=== PATIENT | female | born 1940 | race Caucasian/White ===

== ENCOUNTER 2018-01-28 08:27 | Inpatient (IN) | payer MEDICARE ==
[~2018-01-28] VITALS: Ht 165.1 cm; Wt 69.6 kg
[~2018-01-28 08:27] MED LIST: ALPHAGAN 0.2%5 ML LEFT EYE; CELEXA10 MG PO; COSOPT EYE DROPS5 ML LEFT EYE; FAMOTIDINE10 MG PO; GLIPIZIDE10 MG PO; HYDROCODON-ACE1 EAC7 PO; IMODIUM2 MG PO; LASIX20 MG PO; LEVOXYL25 MCG PO; MEGACE40 MG PO; NEPHRO-VITE RX1 TAB PO; NEURONTIN 300300 MG PO; NORVASC10 MG PO; NORVASC5 MG PO; PEPCID AC20 MG PO; PRILOSEC20 MG PO; RENVELA800 MG PO; SENNA8.6 MG PO; SYNTHROID50 MCG PO; TENORMIN25 MG PO; TENORMIN50 MG PO; ULTRAM50 MG PO
[2018-01-28] MEDS ORDERED: ZOFRAN ODT4 MG/UDTAB PO (08:34)
[2018-01-28] MEDS ORDERED: NITROQUICK0.4 MG SL (08:35)
[2018-01-28] MEDS ORDERED: OMEPRAZOLE20 M1 PO (08:35)
[2018-01-28] MEDS ORDERED: GLIPIZIDE10 MG PO (08:36)
[2018-01-28] MEDS ORDERED: MEGACE40 MG PO (08:37)
[2018-01-28 08:47] VITALS: BP 208/79
[2018-01-28 09:02] LABS: BASOPHILS 0.2 % (0-2); EOSINOPHILS 0.6 % (0-7); HEMATOCRIT 35.3 % (36.0-48.0); HEMOGLOBIN 11.8 g/dL (12-16); IMMATURE GRANULOCYTES 0.2 % (0-5); LYMPHOCYTES 11.9 % (15-50); MCH 30.8 pg (26.0-34.0); MCHC 33.4 g/dL (31.0-37.0); MCV 92.2 fL (80.0-100.0); MEAN PLATELET VOLUME 9.8 fL (7.4-10.4); MONOCYTES 6.3 % (2-11); NEUTROPHILS 80.8 % (40-80); RBC 3.83 10x6/uL (4.00-5.40); RDW 14.5 % (11.5-14.5); WBC 17.1 10x3/uL (4.8-10.8)
[2018-01-28 09:03] LABS: PLATELET COUNT 287 10x3/uL (130-400)
[2018-01-28 09:09] LABS: APTT 28.1 SECONDS (22.8-39.4); INR 1.1 (0.85-1.17); PROTIME 13.8 SECONDS (11.6-15.0)
[2018-01-28 09:11] LABS: D-DIMER-QUANTITATIVE 1.02 ug/mLFEU (0.20-0.54)
[2018-01-28 09:39] LABS: ALBUMIN 3.3 g/dL (3.4-5.0); BILIRUBIN - TOTAL 0.54 mg/dL (0.2-1.3); CARBON DIOXIDE 23.6 mmol/L (21.0-32.0); CREATININE - SERUM 6.3 mg/dL (0.6-1.3); PROTEIN - SERUM 8.6 g/dL (6.4-8.2)
[2018-01-28 09:46] LABS: ANION GAP 18.6 mmol/L (8-16)
[2018-01-28 09:48] LABS: POTASSIUM - SERUM 6.2 mmol/L (3.5-5.1); TROPONIN-I 0.256 ng/mL (0.000-0.060)
[2018-01-28 10:31] VITALS: BP 225/83
[2018-01-28 12:35] VITALS: BP 189/62
[2018-01-28 21:03] VITALS: BP 143/53
[2018-01-29] VITALS (7 sets, daily range): BP systolic 135–182; BP diastolic 51–81; Ht 165.1 cm; Wt 69.6 kg
[2018-01-29 06:03] LABS: BASOPHILS 0.3 % (0-2); HEMATOCRIT 32.6 % (36.0-48.0); HEMOGLOBIN 10.8 g/dL (12-16); IMMATURE GRANULOCYTES 0.3 % (0-5); LYMPHOCYTES 17.1 % (15-50); MCH 30.7 pg (26.0-34.0); MCHC 33.1 g/dL (31.0-37.0); MCV 92.6 fL (80.0-100.0); MEAN PLATELET VOLUME 10.4 fL (7.4-10.4); MONOCYTES 10.2 % (2-11); NEUTROPHILS 69.1 % (40-80); PLATELET COUNT 249 10x3/uL (130-400); RBC 3.52 10x6/uL (4.00-5.40); RDW 14.8 % (11.5-14.5)
[2018-01-29 06:05] LABS: CARBON DIOXIDE 24.4 mmol/L (21.0-32.0); POTASSIUM - SERUM 5.4 mmol/L (3.5-5.1); THYROID STIMULATING HORMONE 1.06 uIU/mL (0.36-3.74)
[2018-01-29 06:07] LABS: WBC 11.7 10x3/uL (4.8-10.8)
[2018-01-29 06:13] LABS: CREATININE - SERUM 4.7 mg/dL (0.6-1.3)
[2018-01-30 01:28] VITALS: BP 150/57
[2018-01-30 04:00] VITALS: BP 153/67
[2018-01-30 05:12] LABS: BASOPHILS 0.4 % (0-2); EOSINOPHILS 5.3 % (0-7); HEMATOCRIT 31.6 % (36.0-48.0); HEMOGLOBIN 10.1 g/dL (12-16); IMMATURE GRANULOCYTES 0.3 % (0-5); LYMPHOCYTES 27.8 % (15-50); MCH 30.1 pg (26.0-34.0); MEAN PLATELET VOLUME 9.8 fL (7.4-10.4); NEUTROPHILS 56.2 % (40-80); RBC 3.36 10x6/uL (4.00-5.40); RDW 14.5 % (11.5-14.5); WBC 10.9 10x3/uL (4.8-10.8)
[2018-01-30 05:16] LABS: PLATELET COUNT 190 10x3/uL (130-400)
[2018-01-30 05:37] LABS: ANION GAP 20.9 mmol/L (8-16); CALCIUM 8.7 mg/dL (8.5-10.1); CARBON DIOXIDE 25.4 mmol/L (21.0-32.0); POTASSIUM - SERUM 5.3 mmol/L (3.5-5.1)
[2018-01-30 05:49] LABS: CREATININE - SERUM 6.3 mg/dL (0.6-1.3); PHOSPHOROUS 8.1 mg/dL (2.5-4.9)
[2018-01-30 09:05] VITALS: BP 161/57
[2018-01-30] MEDS ORDERED: AUGMENTIN 500-11 TA1 PO (11:39)
[2018-01-30] MEDS ORDERED: HYDRALAZINE HCL25 MG PO (11:40)
== END 2018-01-30 15:07 | disposition home or self-care (01) | DRG 193 ==
LOC: D.ER 08:27 → D.SDCHOLD 16:42 → D.M2 16:42
PROVIDERS: Family Medicine; Internal Medicine Nephrology
DX: J18.9 Pneumonia, unspecified organism (principal); N18.6 End stage renal disease; I12.0 Hypertensive chronic kidney disease with stage 5 chronic kidney disease or end stage renal disease; E11.22 Type 2 diabetes mellitus with diabetic chronic kidney disease; D63.1 Anemia in chronic kidney disease; E87.5 Hyperkalemia; E83.39 Other disorders of phosphorus metabolism; I25.10 Atherosclerotic heart disease of native coronary artery without angina pectoris; K21.9 Gastro-esophageal reflux disease without esophagitis; E03.9 Hypothyroidism, unspecified; I25.2 Old myocardial infarction; Z86.73 Personal history of transient ischemic attack (TIA), and cerebral infarction without residual deficits

== ENCOUNTER 2018-03-20 16:18 | Observation (INO) | payer MEDICARE ==
[~2018-03-20] VITALS: Ht 160 cm; Wt 70.5 kg
--- NOTE | ~2018-03-20 | DS ---
PATIENT:JESSY JOHNSON :40 MEDICAL RECORD: [id number] DISCHARGE SUMMARY ADMISSION DATE: 03/20/18 DISCHARGE DATE: 03/21/18 DIAGNOSES: 1. Supraventricular tachycardia. 2. End-stage renal failure, on dialysis. 3. Hypertension. HISTORY OF PRESENT ILLNESS: Ms. Johnson presented to the clinic with supraventricular tachycardia, heart rate in the 170s. She was given 0.5 of oral digoxin. She broke and has been in sinus rhythm since. She is as well on atenolol. REVIEW OF SYSTEMS: The patient reports easy bruising but reports no swollen glands. The patient reports no fever, no night sweats, no significant weight gain, no significant weight loss. No significant exercise tolerance. The patient reports no dry eyes, no irritation, no vision change. Patient reports no difficulty hearing and no ear pain. Patient reports no frequent nose bleeds or nose and sinus problems. Patient reports on arm pain on exertion. No shortness of breath while lying down. No history of heart murmur. Patient reports no cough, no wheezing or coughing up blood. Patient reports no abdominal pain, no vomiting. Normal appetite. No diarrhea and not vomiting blood. No nausea and no constipation. Patient reports no incontinence. No difficulty urinating. No hematuria. No increased frequency. Patient reports no muscle aches. No weakness, no arthralgias, no back pain. No swelling of the extremities. Patient reports no abnormal mole, no jaundice, no rashes. Reports no loss of consciousness. No weakness and no numbness. No seizures, dizziness, or headaches. The patient reports no depression, no sleep disturbance, feeling safe in a relationship and no alcohol abuse. Patient reports on fatigue. Reports no runny nose or sinus pressure. No itching, no hives, and no frequent sneezing. OVERALL IMPRESSION: Supraventricular tachycardia. At this time, we will continue the digoxin at 0.125 mg every other day. We will follow up in 3 weeks. TRANSINT:[id number] Voice Confirmation ID: [id number] DOCUMENT ID: [id number] ARAMIS OSBORNE MD at 1713 CC: [id number] DICTATION DATE: 03/21/18827 STRAW HAT BRUSHER: 03/21/1836 DIS IN 03/21/18 [id number] [place] [address]
--- NOTE | ~2018-03-20 | MORECARE ---
CASE MANAGEMENT DISCHARGE SUMMARY PATIENT: JESSY JOHNSON UNIT: [id number] ADM DATE: 03/20/18 AGE: 77 : 40 SEX: F ROOM/BED: D.[facility] AUTHOR: CASE, AUTOMATIC DRILLER AND REAMER PHYSICIAN: REFERRING PHYSICIAN: ARAMIS OSBORNE MD DATE OF SERVICE: 03/20/18 Discharge Plan Patient Name: JESSY JOHNSON [facility] 1940 Planned Disposition: Home Anticipated Discharge Date: 03/21/18 Discharge Date: Expected LOS: 1 Initial Reviewer: [email or web address] Initial Review Date: 03/21/2018 Generated: 03/21/18 10:31 am Patient Name: JESSY JOHNSON Page [phone] All edits/amendments must be made on the electronic document DICTATION DATE: 03/21/18930 CATERING ADMINISTRATIVE ASSISTANT: 03/21/18930 RPT#: [id number] DC DATE: STATUS: ADM IN [facility] [address] [place] [address] END OF REPORT
[~2018-03-20 16:18] MED LIST changes: +AUGMENTIN 500-11 TA1 PO; +HYDRALAZINE HCL25 MG PO; +NITROQUICK0.4 MG SL; +OMEPRAZOLE20 M1 PO; +ZOFRAN ODT4 MG/UDTAB PO
[2018-03-20 16:58] VITALS: BP 142/64; Ht 160 cm; Wt 70.5 kg
[2018-03-20 19:07] LABS: ANION GAP 11.9 mmol/L (8-16); CARBON DIOXIDE 27.7 mmol/L (21.0-32.0); CREATININE - SERUM 3.2 mg/dL (0.6-1.3); POTASSIUM - SERUM 3.6 mmol/L (3.5-5.1); T4 THYROXIN - FREE 1.53 ng/dL (0.76-1.46); T4 THYROXINE 10.6 ug/dL (4.7-13.3)
[2018-03-20 19:31] LABS: THYROID STIMULATING HORMONE 0.49 uIU/mL (0.36-3.74)
[2018-03-20 20:06] VITALS: BP 178/61
[2018-03-21] VITALS: BP 177/65
[2018-03-21 04:00] VITALS: BP 161/60
[2018-03-21 07:46] VITALS: BP 175/60
[2018-03-21] MEDS ORDERED: LANOXIN125 MCG PO (08:42)
== END 2018-03-21 09:40 | disposition home or self-care (01) ==
LOC: D.M2 16:18 → OBSVTIME 16:19 → D.M2 03-21 09:40 → EDBD 03-21 09:40
PROVIDERS: Internal Medicine Interventional Cardiology
DX: I47.1 Supraventricular tachycardia (principal); I12.0 Hypertensive chronic kidney disease with stage 5 chronic kidney disease or end stage renal disease; N18.6 End stage renal disease; Z99.2 Dependence on renal dialysis

== ENCOUNTER 2018-04-08 09:51 | Inpatient (IN) | payer MEDICARE ==
[~2018-04-08] VITALS: Ht 160 cm
--- NOTE | ~2018-04-08 | EC ---
PATIENT:JESSY JOHSNON DATE OF SERVICE: 04/08/18 SEX: F MEDICAL RECORD: [id number] DATE OF : 40 LOCATION:D. D.211 AGE OF PATIENT: 77 ADMISSION DATE: 04/08/18 REFERRING PHYSICIAN: INTERPRETING PHYSICIAN: ARAMIS OSBORNE MD ECHOCARDIOGRAM REPORT ECHO CHARGES 4 ECHO COMPLETE Date: 04/09 CLINICAL DIAGNOSIS: UNCONTROLLED HTN, HX OF RENAL PATIENT ECHOCARDIOGRAPHIC MEASUREMENTS (adult normal given) AC root (d.<3.7cm) 3.9 cm LV Septum d (<1.2 cm> 1.3 cm Valve Excursion 1.4 cm LV Septum (systole) 1.6 cm Left Atria (s.<4.0cm> 4.0 cm LVPW d(<1.2cm) 1.8 cm RV (d.<2.3cm) 3.8 cm LVPW (sytole) 2.0 cm LV diastole(<5.6CM) 5.4 cm MV E-F(>70mm/sec) cm LV systole 4.1 cm LVOT Diameter 1.5 cm MV exc.(>10mm) 1.2 cm Est.ejection fraction (50-75%) % DOPPLER: LVIT cm/sec A 195 cm/sec E 175 cm/sec LA cm/sec RVSP 45 mmHg LVOT 168 cm/sec AOP1/2T m/s Asc. Ao 269 cm/sec RVOT 106 cm/sec RA cm/sec PA 165 cm/sec AV Gradient Peak 28.95mmHg AV Mean 14.71mmHg AV Area 1.4 cm MV Gradient Peak 19.24mmHg MV Mean 8.50 mmHg MV Area cm COMMENTS: Mobile Sales Assistant: Wu MENDEZ Bottle Packing Machine Cleaner: 3 Dr. Cherry TAPE# PACS Pericardial Effusion N DATE OF SERVICE: 04/09/2018 ECHOCARDIOGRAM FINDINGS: 1. Left ventricular chamber size is within normal limits. Left ventricular systolic function is normal. Overall ejection fraction estimated at 55%. 2. Left atrium is upper limits of normal at 4.0 cm. Right atrium and right ventricle chamber sizes are mildly dilated. 3. Valvular structures: Aortic valve demonstrates mild calcific aortic ECHOCARDIOGRAM REPORT [id number] JESSY JOHNSON stenosis. Valve area calculates to 1.4 cm-squared. There is a gradient of 29 mm across the valve. The remaining valvular structures have normal structure and motion. 4. Doppler interrogation else montanez reveals mild mitral regurgitation and mild tricuspid regurgitation. Pulmonary systolic pressure is estimated at 45 mmHg. 5. No evidence of pericardial effusion or left ventricular thrombus. TRANSINT:[id number] Voice Confirmation ID: [id number] DOCUMENT ID: [id number] ARAMIS OSBORNE MD at 1642 CC: [id number] DICTATION DATE: 04/09/18 164 TELEPHONE ORDER DISPATCHER: 04/09/18 1848 ADM IN [facility] [address] [id number]
[~2018-04-08 09:51] MED LIST changes: +LANOXIN125 MCG PO
[2018-04-08 12:22] LABS: BASOPHILS 0 % (0-2); EOSINOPHILS 0 % (0-7); HEMATOCRIT 35.1 % (36.0-48.0); HEMOGLOBIN 11.7 g/dL (12-16); IMMATURE GRANULOCYTES 0.3 % (0-5); LYMPHOCYTES 5.1 % (15-50); MCHC 33.3 g/dL (31.0-37.0); MCV 93.1 fL (80.0-100.0); MEAN PLATELET VOLUME 10.7 fL (7.4-10.4); MONOCYTES 3.7 % (2-11); NEUTROPHILS 90.9 % (40-80); RBC 3.77 10x6/uL (4.00-5.40); RDW 14.6 % (11.5-14.5); WBC 16.6 10x3/uL (4.8-10.8)
[2018-04-08 12:38] LABS: PLATELET COUNT 265 10x3/uL (130-400)
[2018-04-08 13:06] LABS: ALBUMIN 3.4 g/dL (3.4-5.0); ALKALINE PHOSPHATASE 77 U/L (46-116); ALT (SGPT) 28 U/L (10-68); BILIRUBIN - TOTAL 0.55 mg/dL (0.2-1.3); CALCIUM 8.9 mg/dL (8.5-10.1); CARBON DIOXIDE 19.3 mmol/L (21.0-32.0); CHLORIDE - SERUM 96 mmol/L (98-107); CKMB 2.5 U/L (0.0-3.6); CREATINE KINASE 42 UL (21-215); CREATININE - SERUM 6.9 mg/dL (0.6-1.3); MAGNESIUM - SERUM 2.2 mg/dL (1.8-2.4); PROTEIN - SERUM 7.6 g/dL (6.4-8.2); SODIUM 132 mmol/L (136-145); UREA NITROGEN 70 mg/dL (7-18); eGFR NON AFRICAN AMERICAN 6 mL/min (90-120)
[2018-04-08 13:12] LABS: CALC OSMOLALITY 297 mosm/kg (275-300); GLUCOSE 310 mg/dL (74-106)
[2018-04-08 13:13] LABS: POTASSIUM - SERUM 6.5 mmol/L (3.5-5.1); TROPONIN-I 0.075 ng/mL (0.000-0.060)
[2018-04-08 13:30] VITALS: BP 213/86
[2018-04-08 13:42] LABS: PRO BNP 73036 pg/mL (0-450)
[2018-04-08 14:30] VITALS: BP 228/75
[2018-04-08 15:00] VITALS: BP 174/98
[2018-04-08] MEDS ORDERED: HYDRALAZINE HCL50 MG PO (18:17)
[2018-04-08] MEDS ORDERED: CATAPRES0.1 MG PO (18:18)
[2018-04-08 20:00] VITALS: BP 144/57
[2018-04-08 23:53] VITALS: BP 143/79
[2018-04-09 04:17] VITALS: BP 181/64
[2018-04-09 07:08] LABS: BASOPHILS 0.1 % (0-2); HEMATOCRIT 33.7 % (36.0-48.0); HEMOGLOBIN 11.1 g/dL (12-16); IMMATURE GRANULOCYTES 0.5 % (0-5); LYMPHOCYTES 12.5 % (15-50); MCH 30.3 pg (26.0-34.0); MCHC 32.9 g/dL (31.0-37.0); MCV 92.1 fL (80.0-100.0); MEAN PLATELET VOLUME 10.3 fL (7.4-10.4); MONOCYTES 7.1 % (2-11); NEUTROPHILS 78.8 % (40-80); PLATELET COUNT 233 10x3/uL (130-400); RBC 3.66 10x6/uL (4.00-5.40); RDW 14.6 % (11.5-14.5); WBC 14.3 10x3/uL (4.8-10.8)
[2018-04-09 07:19] LABS: CALCIUM 8.6 mg/dL (8.5-10.1); CREATININE - SERUM 5.8 mg/dL (0.6-1.3)
[2018-04-09 07:22] LABS: ANION GAP 14.5 mmol/L (8-16); CARBON DIOXIDE 26.5 mmol/L (21.0-32.0)
[2018-04-09 07:47] VITALS: BP 143/58
[2018-04-09 10:03] VITALS: Ht 160 cm
[2018-04-09 11:00] VITALS: BP 140/60
[2018-04-09 20:00] VITALS: BP 143/50
[2018-04-10 04:00] VITALS: BP 174/65
[2018-04-10 07:41] VITALS: BP 195/60
[2018-04-10 20:19] VITALS: BP 88/58
[2018-04-11] VITALS: BP 214/71
[2018-04-11 04:00] VITALS: BP 185/60
[2018-04-11 08:06] VITALS: BP 206/64
[2018-04-11 11:40] VITALS: BP 143/40
[2018-04-11 15:21] VITALS: BP 121/38
[2018-04-11 20:00] VITALS: BP 144/82
[2018-04-12] VITALS: BP 121/34
[2018-04-12 04:00] VITALS: BP 123/43
[2018-04-12 08:11] VITALS: BP 128/47
[2018-04-12 12:07] LABS: BASOPHILS 0.2 % (0-2); EOSINOPHILS 1.9 % (0-7); HEMATOCRIT 33.2 % (36.0-48.0); HEMOGLOBIN 10.9 g/dL (12-16); IMMATURE GRANULOCYTES 0.4 % (0-5); LYMPHOCYTES 10.5 % (15-50); MCH 29.9 pg (26.0-34.0); MCHC 32.8 g/dL (31.0-37.0); MCV 91.2 fL (80.0-100.0); MEAN PLATELET VOLUME 11.8 fL (7.4-10.4); MONOCYTES 7.4 % (2-11); NEUTROPHILS 79.6 % (40-80); PLATELET COUNT 251 10x3/uL (130-400); RBC 3.64 10x6/uL (4.00-5.40); WBC 16.3 10x3/uL (4.8-10.8)
[2018-04-12 12:49] LABS: ALBUMIN 2.8 g/dL (3.4-5.0); ANION GAP 16.5 mmol/L (8-16); BILIRUBIN - TOTAL 0.34 mg/dL (0.2-1.3); CARBON DIOXIDE 27.7 mmol/L (21.0-32.0); CREATININE - SERUM 7.2 mg/dL (0.6-1.3); POTASSIUM - SERUM 4.2 mmol/L (3.5-5.1); PROTEIN - SERUM 7.2 g/dL (6.4-8.2); T4 THYROXINE 8.7 ug/dL (4.7-13.3); THYROID STIMULATING HORMONE 0.47 uIU/mL (0.36-3.74)
[2018-04-12 15:29] VITALS: BP 123/44
[2018-04-12 20:00] VITALS: BP 123/33
[2018-04-13] VITALS: BP 126/38
[2018-04-13 04:00] VITALS: BP 151/63
[2018-04-13 08:58] VITALS: BP 153/46
[2018-04-13 14:43] VITALS: BP 151/90
[2018-04-13 14:45] VITALS: BP 130/33
[2018-04-13 20:38] VITALS: BP 170/50
[2018-04-14 00:30] VITALS: BP 158/50
[2018-04-14 04:27] LABS: BASOPHILS 0.2 % (0-2); EOSINOPHILS 3.6 % (0-7); HEMATOCRIT 32.2 % (36.0-48.0); HEMOGLOBIN 10.3 g/dL (12-16); IMMATURE GRANULOCYTES 0.3 % (0-5); LYMPHOCYTES 19.2 % (15-50); MCH 30.3 pg (26.0-34.0); MEAN PLATELET VOLUME 11.2 fL (7.4-10.4); MONOCYTES 9.3 % (2-11); NEUTROPHILS 67.4 % (40-80); PLATELET COUNT 203 10x3/uL (130-400); RDW 14.2 % (11.5-14.5)
[2018-04-14 04:30] VITALS: BP 177/55
[2018-04-14 04:30] LABS: MCV 94.7 fL (80.0-100.0); WBC 11.3 10x3/uL (4.8-10.8)
[2018-04-14 04:36] LABS: CALCIUM 8.9 mg/dL (8.5-10.1); CARBON DIOXIDE 28.1 mmol/L (21.0-32.0); POTASSIUM - SERUM 4.1 mmol/L (3.5-5.1)
[2018-04-14 08:47] VITALS: BP 159/52
[2018-04-14 12:53] VITALS: BP 134/47
[2018-04-14 16:13] VITALS: BP 150/50
[2018-04-14 20:20] VITALS: BP 165/59
[2018-04-15 00:30] VITALS: BP 128/43
[2018-04-15 04:30] VITALS: BP 187/59
[2018-04-15 05:21] LABS: BASOPHILS 0.2 % (0-2); HEMATOCRIT 31.1 % (36.0-48.0); HEMOGLOBIN 10.1 g/dL (12-16); IMMATURE GRANULOCYTES 0.3 % (0-5); MCH 29.8 pg (26.0-34.0); MCHC 32.5 g/dL (31.0-37.0); MEAN PLATELET VOLUME 11.3 fL (7.4-10.4); MONOCYTES 9.3 % (2-11); NEUTROPHILS 66.2 % (40-80); PLATELET COUNT 233 10x3/uL (130-400); RBC 3.39 10x6/uL (4.00-5.40); WBC 12.4 10x3/uL (4.8-10.8)
[2018-04-15 05:26] LABS: MCV 91.7 fL (80.0-100.0)
[2018-04-15 05:41] LABS: ALBUMIN 2.7 g/dL (3.4-5.0); ANION GAP 14.8 mmol/L (8-16); BILIRUBIN - TOTAL 0.41 mg/dL (0.2-1.3); CARBON DIOXIDE 27.6 mmol/L (21.0-32.0); CREATININE - SERUM 7.1 mg/dL (0.6-1.3); POTASSIUM - SERUM 4.4 mmol/L (3.5-5.1); PROTEIN - SERUM 6.8 g/dL (6.4-8.2)
[2018-04-15 07:47] VITALS: BP 188/56
[2018-04-15] MEDS ORDERED: LISINOPRIL10 MG PO (11:11)
[2018-04-15] MEDS ORDERED: LASIX40 MG PO (11:12)
[2018-04-15] MEDS ORDERED: CATAPRES0.2 MG PO (11:12)
[2018-04-15 11:16] LABS: RENIN ACTIVITY - PLASMA 0.752 ng/mL/hr (0.167-5.380)
[2018-04-15 11:18] VITALS: BP 136/43
[2018-04-17 08:21] LABS: ALDOSTERONE <1.0 ng/dL (0.0-30.0)
== END 2018-04-15 19:40 | disposition home or self-care (01) | DRG 291 ==
LOC: D.ER 09:51 → EDBD 13:09 → D.EDHOLD 13:09 → D.M2 13:09
PROVIDERS: Emergency Medicine; Internal Medicine
PROC: 5A1D70Z Performance of Urinary Filtration, Intermittent, Less than 6 Hours Per Day (ICD-10-PCS; principal; 2018-04-08)
DX: I13.2 Hypertensive heart and chronic kidney disease with heart failure and with stage 5 chronic kidney disease, or end stage renal disease (principal); J18.9 Pneumonia, unspecified organism; I50.33 Acute on chronic diastolic (congestive) heart failure; N18.6 End stage renal disease; J81.1 Chronic pulmonary edema; E87.5 Hyperkalemia; E11.22 Type 2 diabetes mellitus with diabetic chronic kidney disease; Z99.2 Dependence on renal dialysis; E11.40 Type 2 diabetes mellitus with diabetic neuropathy, unspecified; Z86.73 Personal history of transient ischemic attack (TIA), and cerebral infarction without residual deficits

== ENCOUNTER → 2018-05-22 15:38 | Outpatient (CLI) | payer MEDICARE ==
[~2018-05-22 15:38] MED LIST changes: +CATAPRES0.1 MG PO; +CATAPRES0.2 MG PO; +HYDRALAZINE HCL50 MG PO; +LASIX40 MG PO; +LISINOPRIL10 MG PO
== END | disposition home or self-care (01) ==
LOC: D.RAD 15:38
DX: R05 Cough (principal)

== ENCOUNTER → 2018-08-27 09:25 | Outpatient (CLI) | payer MEDICARE | END | disposition home or self-care (01) | LOC: D.CT 09:25 | DX: R10.9 Unspecified abdominal pain (principal) ==

== ENCOUNTER → 2019-01-06 14:37 | Outpatient (CLI) | payer MEDICARE ==
[2018-11-19 13:15] VITALS: BMI 19.8
[~2019-01-06 14:37] MED LIST changes: +BACTRIM DS PO; +BASAGLAR K100 UNIT/1; +MELATONIN 3 MG1 TAB PO
== END | disposition home or self-care (01) ==
LOC: D.US 01-02 08:30
PROVIDERS: ATTEND Nurse Practitioner Family
DX: R20.9 Unspecified disturbances of skin sensation (principal)

== ENCOUNTER 2019-01-18 22:02 | Inpatient (IN) | payer MEDICARE ==
[~2019-01-18] VITALS: Ht 160 cm; Wt 70.5 kg
--- NOTE | ~2019-01-18 | HEMODYNAMI ---
PATIENT:JESSY JOHNSON MEDICAL RECORD: [id number] : 40 LOCATION:[facility] ADMISSION DATE: 01/19/19 Generatedon:01/20/201920:21 Patient name: JESSY JOHNSON Patient #: [id number] SSN: : 1940 Date of study: 01/20/2019 Page: Of Hemodynamic Procedure Report Patient Data Patient Demographics Procedure consent was obtained First Name: JESSY Gender: Female Last Name: ELIZABETH : 1940 Middle Initial: L Age: 78 year(s) Patient #: [id number] Race: Unknown Additional ID: [id number] Contact details Address: [address] [place] [address] ROAD [facility] [place] [facility] Zip code: [address] Past Medical History Allergies Allergen Reaction Date Comments Reported Other allergy 01/20/2019 Admission Admission Data Admission Date: 01/19/2019 Admission Time: 1:11 Room #: [facility] Procedure Procedure Types Cath Procedure Peripheral Cath Diagnostic Procedure Abd/Extremity Extremities AFRO Lower Ext Arterio Procedure Description Procedure Date Procedure Date: 01/20/2019 Procedure Start Time: 13:46 Procedure Staff Name Function Dg Velasquez MD Performing Physician James Avila RT Monitor KANG RUSSELL RT Scrub Dory Jason RN Nurse Pete Lowery CRNA Additional personnel Procedure Data Cath Procedure Fluoroscopy Diagnostic fluoroscopy Total fluoroscopy Time: time: 31.3 min 31.3 min Diagnostic fluoroscopy Total fluoroscopy dose: dose: 1259 mGy 1259 mGy Contrast Material Contrast Material Type Amount (ml) Isovue 300 270 Entry Location Entry Primary Successful Side Size Upsize Upsize Entry Closure Succes sful Closure Location (Fr) 1 (Fr) 2 (Fr) Remarks Device Remarks Femoral Left 5 Fr 7 Fr Exoseal artery Short Femoral Right 5 Fr 7 Fr Exoseal artery Short Femoral Right 6 Fr artery Short Diagnostic catheters Device Type Used For End Catheter Placement Merit UHF Pigtail VESSEL SIZING 5Fr 65CM catheter ([id number]) Procedure Medications Medication Administration Route Dosage Heparin Flush Bag added to field 3 bags (1000units/500ml NS) Lidocaine 1% added to field 20 Fentanyl I.V. 25 mcg Versed I.V. 0.5 mg Fentanyl I.V. 25 mcg Versed I.V. 0.5 mg Versed I.V. 1 mg Fentanyl I.V. 50 mcg Heparin Bolus I.V. 4000 units Versed I.V. 0.5 mg Fentanyl I.V. 25 mcg Fentanyl I.V. 25 mcg Versed I.V. 0.5 mg Versed I.V. 0.5 mg Fentanyl I.V. 25 mcg Heparin Bolus I.V. 2000 units Heparin Flush Bag added to field 1 bags (1000units/500ml NS) Heparin Bolus I.V. 2000 units Fentanyl I.V. 25 mcg Versed I.V. 0.5 mg Heparin Bolus I.V. 1000 units Hemodynamics Rest Heart Rate: 76 (bpm) Snapshots Pre Cath Intra NCS Post Cath Vital Signs Time Heart Resp SPO2 etCO2 NIBP (mmHg) Rhythm Pain Sedation Rate (ipm) (%) (mmHg) Status Level (bpm) 13:38:35 75 24 100 22.5 139/74(117) NSR 0 (11) 9(A) , No pain 13:42:51 76 25 100 23.2 136/71(114) NSR 0 (11) 9(A) , No pain 13:47:07 73 9 98 24 132/69(112) NSR 0 (11) 9(A) , No pain 13:51:23 69 17 95 21 133/66(113) NSR 0 (11) 9(A) , No pain 13:55:39 64 21 96 10 127/67(102) NSR 0 (11) 9(A) , No pain 13:59:55 66 20 98 9 116/57(99) NSR 0 (11) 9(A) , No pain 14:04:07 68 18 97 10 117/58(97) NSR 0 (11) 9(A) , No pain 14:08:19 71 19 98 10 127/58(91) NSR 0 (11) 9(A) , No pain 14:12:31 72 16 98 14.5 128/65(107) NSR 0 (11) 9(A) , No pain 14:16:49 73 20 100 12.7 57/44(51) NSR 0 (11) 9(A) , No pain 14:19:12 67 17 99 0 119/58(93) NSR 0 (11) 9(A) , No pain 14:23:24 70 17 86 0 105/57(76) NSR 0 (11) 8(A) , No pain 14:27:32 70 15 96 13.5 114/57(89) NSR 0 (11) 8(A) , No pain 14:31:44 71 17 25.5 130/60(115) NSR 0 (11) 8(A) , No pain 14:36:02 68 14 100 13.5 118/55(81) NSR 0 (11) 8(A) , No pain 14:40:16 68 17 99 9.7 108/50(82) NSR 0 (11) 8(A) , No pain 14:43:35 66 15 99 11.2 109/53(83) NSR 0 (11) 8(A) , No pain 14:48:34 69 15 96 0 Measuring NSR 0 (11) 8(A) , No pain 14:48:44 66 16 94 0 114/55(84) NSR 0 (11) 8(A) , No pain 14:52:54 68 15 92 12.7 104/58(95) NSR 0 (11) 8(A) , No pain 14:57:00 70 16 92 19.5 113/62(89) NSR 0 (11) 8(A) , No pain 15:01:10 69 16 98 12.7 116/58(94) NSR 0 (11) 8(A) , No pain 15:06:09 69 16 99 25.5 Measuring NSR 0 (11) 8(A) , No pain 15:06:10 69 17 100 20.2 134/62(101) NSR 0 (11) 8(A) , No pain 15:10:29 68 16 92 0 129/62(96) NSR 0 (11) 8(A) , No pain 15:14:45 70 15 94 16.5 126/60(96) NSR 0 (11) 8(A) , No pain 15:18:59 70 15 97 9.7 124/65(91) NSR 0 (11) 8(A) , No pain 15:23:11 68 16 98 9 134/65(93) NSR 0 (11) 8(A) , No pain 15:27:26 70 16 99 0 133/65(96) NSR 0 (11) 8(A) , No pain 15:31:43 69 18 97 0 128/62(105) NSR 0 (11) 8(A) , No pain 15:35:57 69 17 100 15 144/66(112) NSR 0 (11) 8(A) , No pain 15:40:19 68 18 95 0 130/60(102) NSR 0 (11) 8(A) , No pain 15:44:35 69 18 95 12.7 135/63(91) NSR 0 (11) 8(A) , No pain 15:48:51 68 16 96 0 127/67(101) NSR 0 (11) 8(A) , No pain 15:53:03 68 18 97 0 139/64(110) NSR 0 () 8(A) , No pain 15:57:21 67 16 97 0 141/66(105) NSR 0 (11) 8(A) , No pain 16:01:41 67 8 96 0 139/65(113) NSR 0 (11) 8(A) , No pain 16:06:40 0 Measuring NSR 0 (11) 8(A) , No pain 16:07:13 24.7 128/57(73) NSR 0 (11) 8(A) , No pain 16:11:59 0 150/80(119) NSR 0 (11) 8(A) , No pain 16:16:58 67 14 0 Measuring NSR 0 (11) 8(A) , No pain 16:18:22 68 12 0 Time NSR 0 (11) 8(A) Exceeded , No pain 16:20:07 77 14 86 0 103/61(74) NSR 0 (11) 8(A) , No pain 16:25:06 72 13 92 0 Measuring NSR 0 (11) 8(A) , No pain 16:26:08 72 18 94 0 Out of range NSR 0 (11) 8(A) , No pain 16:30:09 67 9 99 1.5 100/52(77) NSR 0 (11) 8(A) , No pain 16:34:19 65 8 100 0.7 91/49(72) NSR 0 (11) 8(A) , No pain 16:38:27 64 8 100 1.5 85/44(67) NSR 0 (11) 8(A) , No pain 16:42:31 63 11 100 2.2 82/46(68) NSR 0 (11) 8(A) , No pain 16:46:34 60 16 100 3 81/46(64) NSR 0 (11) 8(A) , No pain 16:50:36 61 13 100 9 94/49(75) NSR 0 (11) 8(A) , No pain 16:54:40 60 12 100 1.5 106/61(84) NSR 0 (11) 8(A) , No pain 16:58:48 62 16 100 5.2 110/57(86) NSR 0 (11) 8(A) , No pain 17:02:59 60 16 100 5.2 107/56(91) NSR 0 (11) 8(A) , No pain 17:07:07 59 17 100 5.2 106/60(90) NSR 0 (11) 8(A) , No pain 17:11:17 58 17 100 4.5 107/57(89) NSR 0 (11) 8(A) , No pain 17:15:27 57 25 100 5.2 111/55(88) NSR 0 (11) 8(A) , No pain 17:19:37 58 22 100 5.2 118/58(96) NSR 0 (11) 8(A) , No pain 17:23:49 58 24 100 5.2 116/59(97) NSR 0 (11) 8(A) , No pain 17:28:01 58 24 100 5.2 111/58(91) NSR 0 (11) 8(A) , No pain 17:32:13 57 24 100 5.2 112/56(91) NSR 0 (11) 8(A) , No pain 17:36:25 57 32 100 4.5 113/54(94) NSR 0 (11) 8(A) , No pain 17:40:39 57 20 100 4.5 108/51(89) NSR 0 (11) 8(A) , No pain 17:44:49 58 34 100 4.5 111/55(89) NSR 0 (11) 8(A) , No pain 17:48:58 57 20 100 4.5 106/59(90) NSR 0 (11) 8(A) , No pain 17:53:08 58 26 100 5.2 115/57(98) NSR 0 (11) 8(A) , No pain 17:57:14 60 27 100 4.5 117/60(96) NSR 0 (11) 8(A) , No pain 18:01:24 58 28 3.7 122/68(100) NSR 0 (11) 8(A) , No pain 18:05:28 58 23 3.7 118/105(114) NSR 0 (11) 8(A) , No pain 18:06:29 58 23 98 3.7 129/64(92) NSR 0 (11) 8(A) , No pain 18:11:28 62 25 98 5.2 Measuring NSR 0 (11) 8(A) , No pain 18:11:43 63 20 96 6.7 129/83(100) NSR 0 (11) 8(A) , No pain 18:15:53 62 15 98 2.2 148/83(129) NSR 0 (11) 8(A) , No pain 18:20:09 62 18 99 1.5 149/83(125) NSR 0 (11) 8(A) , No pain 18:24:22 63 18 9.7 158/90(134) NSR 0 (11) 8(A) , No pain 18:28:43 61 17 100 4.5 161/85(119) NSR 0 (11) 8(A) , No pain 18:33:03 61 17 100 6 161/90(131) NSR 0 (11) 8(A) , No pain 18:37:21 60 17 1.5 158/90(133) NSR 0 (11) 8(A) , No pain 18:41:43 62 17 1.5 164/81(135) NSR 0 (11) 8(A) , No pain 18:45:51 94 16.5 130/86(117) NSR 0 (11) 8(A) , No pain 18:49:50 65 9 98 16.5 109/81(94) NSR 0 (11) 8(A) , No pain 18:54:43 66 15 97 0.7 130/105(115) NSR 0 (11) 8(A) , No pain 18:58:59 71 9 88 0 126/67(85) NSR 0 (11) 8(A) , No pain 19:03:58 62 16 88 0 Measuring NSR 0 () 8(A) , No pain 19:05:20 62 15 90 0 Time NSR 0 (11) 8(A) Exceeded , No pain 19:06:20 62 20 84 0 No Cuff NSR 0 () 8(A) , No pain 19:09:40 64 25 0 Time NSR 0 (11) 8(A) Exceeded , No pain 19:14:01 63 27 0 Time NSR 0 () 8(A) Exceeded , No pain 19:17:38 63 8 82 0 Time NSR 0 (11) 8(A) Exceeded , No pain 19:22:10 59 18 91 0 Time NSR 0 (11) 8(A) Exceeded , No pain 19:26:10 61 13 98 0 No Cuff NSR 0 () 8(A) , No pain 19:30:10 69 23 0 No Cuff NSR 0 (11) 8(A) , No pain 19:34:09 59 20 0 No Cuff NSR 0 () 8(A) , No pain 19:38:13 54 23 0 Time NSR 0 (11) 8(A) Exceeded , No pain 19:43:12 53 28 0 Measuring NSR 0 (11) 8(A) , No pain 19:44:05 53 14 0 116/58(97) NSR 0 (11) 8(A) , No pain 19:48:05 55 22 0 No Cuff NSR 0 (11) 8(A) , No pain 19:52:04 0 No Cuff NSR 0 (11) 8(A) , No pain 19:56:04 0 No Cuff NSR 0 (11) 8(A) , No pain 20:00:04 0 No Cuff NSR 0 (11) 8(A) , No pain 20:04:03 0 No Cuff NSR 0 (11) 8(A) , No pain 20:08:03 0 No Cuff NSR 0 (11) 8(A) , No pain 20:12:03 0 No Cuff NSR 0 (11) 8(A) , No pain 20:16:02 0 No Cuff NSR 0 (11) 8(A) , No pain 20:20:02 0 No Cuff NSR 0 (11) 8(A) , No pain Medications Time Medication Route Dose Verified Delivered Reason Notes Effec tiveness by by 13:44:22 Heparin Flush added 3 Dg Conte used for Bag to bags Eva Velasquez MD procedure (1000units/500ml field MORALES NS) 13:44:43 Lidocaine 1% added 20ml Dg Conte used for to vial Eva Velasquez MD procedure field MORALES 13:50:39 Fentanyl I.V. 25 Dg Dory for mcg Eren Velasquez RN sedation 13:51:13 Versed I.V. 0.5 Dg Dory for mg RebeccaaEren RN sedation 13:55:06 Fentanyl I.V. 25 Dg Dory for mcg RebeccaaEren RN sedation 13:55:15 Versed I.V. 0.5 Dg Dory for mg BurdaEren RN sedation 14:19:43 Versed I.V. 1 mg Dg Dory for BurdaEren RN sedation 14:19:58 Fentanyl I.V. 50 Dg Dory for mcg RebeccaaEren RN sedation 14:30:08 Heparin Bolus I.V. 4000 Dg Dory Per units Eren Velasquez RN physician 14:35:37 Versed I.V. 0.5 Dg Dory for mg Burda, Eren RN sedation 14:35:50 Fentanyl I.V. 25 Dg Dory for mcg Burda, Eren RN sedation 14:40:18 Fentanyl I.V. 25 Dg Dory for mcg Burda, Eren RN sedation 14:43:24 Versed I.V. 0.5 Gd Dory for mg Burda, Eren RN sedation 15:07:09 Versed I.V. 0.5 Dg Dory for mg Burda, Eren RN sedation 15:07:19 Fentanyl I.V. 25 Dg Connors for mcg Eren Velasquez RN sedation 15:09:46 Heparin Bolus I.V. 2000 Dg Connors Per units Eren Velasquez RN physician 15:38:32 Heparin Flush added 1 Dg Conte used for Bag to bags Eva Velasquez MD procedure (1000units/500ml field NS) 15:39:05 Heparin Bolus I.V. 2000 Dg Connors used for units Eren Velasquez RN procedure 15:39:21 Fentanyl I.V. 25 Dg Connors for mcg Eren Velasquez RN sedation 15:39:33 Versed I.V. 0.5 Dg Connors for mg Eren Velasquez RN sedation 16:52:43 Heparin Bolus I.V. 1000 Dg Connors used for units Eren Velasquez RN procedure Procedure Log Time Note 13:14:31 James Avila RT (R) (CV) sent for patient. Start room use. 13:14:46 Time tracking: Regular hours (M-F 7:00 - 5:00) 13:14:51 Plan of Care:Hemodynamics will remain stable., Cardiac rhythm will remain stable., Comfort level will be maintained., Respiratory function will remain adequate., Patient/ family verbilizes understanding of procedure., Procedure tolerated without complication., Recovers from procedure without complications.. 13:14:59 Patient received from Med II to IR Alert and oriented. Tansferred to table in Supine position. 13:15:00 Correct patient and procedure confirmed by team. 13:15:02 Signed procedure consent form obtained from patient. 13:15:04 ECG and BP/O2 sat monitors applied to patient. 13:15:05 Full Disclosure recording started 13:15:08 - 13:15:12 H&P Date Dictated: 01/20/2019 H&P Addendum completed by physician on day of procedure. (MUST COMPLETE FOR ALL OUTPATIENTS). 13:15:13 Pre-procedure instructions explained to patient. 13:15:14 Pre-op teaching completed and patient verbalized understanding. 13:15:15 Family in waiting room. 13:15:17 Patient NPO since Midnight. 13:15:26 Patient allergic to Other allergy 13:15:33 Use device set IR Diagnostic 13:15:34 ACIST Syringe (93315) opened to sterile field. 13:15:35 ACIST Hand Control (92495) opened to sterile field. 13:15:35 ACIST Manifold (02885) opened to sterile field. 13:15:36 Bag Decanter (2002S) opened to sterile field. 13:15:36 Sterile Angiographic Pack opened to sterile field. 13:15:37 Tegaderm 4 x 4 (1626W) opened to sterile field. 13:15:49 Is the patient allergic to Iodine/contrast media? No. 13:15:51 Is patient on blood thinner?Yes 13:15:54 ACC The patient was administered the following blood thiners within the last 24 hours: ACCHeparin 13:15:57 Patient diabetic? Yes. 13:16:01 If diabetic: On Metformin? No 13:16:06 - 13:16:07 ----Pre-sedation anethsthesia assessment.---- 13:16:13 Previous problem with sedation/anesthesia? No ? 13:16:14 Snore? Yes 13:16:16 Sleep apnea? No 13:16:18 Deviated septum? No 13:16:20 Opens mouth fully? Yes 13:16:21 Sticks out tongue? Yes 13:16:23 Airway obstruction? No ? 13:16:26 Dentures? No ? 13:37:26 Baseline sample Acquired. 13:37:26 Vital chart was started 13:37:36 Pre procedure: right dorsailis pedis pulse None 13:37:40 Pre procedure: left dorsailis pedis pulse None 13:37:44 Pre procedure: right posterior tibial pulse None 13:37:48 Pre procedure: left posterior tibial pulse None 13:38:14 IV patent on arrival in right femerol vein with 0.9% NaCl at [facility]. 13:38:37 Sharps counted by scrub and verified by R.N. 13:38:38 Alarms reviewed by R. N. 13:39:01 Right groin area was prepped with chlora-prep and draped in sterile fashion 13:44:22 Heparin Flush Bag (1000units/500ml NS) 3 bags added to field was administered by Dg Velasquez MD; used for procedure; 13:44:43 Lidocaine 1% 20ml vial added to field was administered by Dg Velasquez MD; used for procedure; 13:45:55 Physician arrived 13:45:56 --------ALL STOP TIME OUT------ 13:45:56 Final Timeout: patient, procedure, and site verified with staff and physician. All members of the team are in agreement. 13:45:59 Bilateral groins site verified by team. 13:46:07 Fire Safety Assessment: A--An alcohol-based skin anteseptic being used preoperatively., C--Open oxygen or nitrous oxide is being used. 13:46:10 Sedation plan: IV Moderate Sedation Medication:Versed, Fentanyl 13:46:17 Procedure started. 13:46:24 Local anesthetic to left femerol artery with Lidocaine 1% by Dg Velasquez MD.INITIAL ACCESS ONLY 13:50:39 Fentanyl 25 mcg I.V. was administered by Dory Jason RN; for sedation; 13:51:13 Versed 0.5 mg I.V. was administered by Dory Jason RN; for sedation; 13:53:18 DOC .035 wire (F09009) opened to sterile field. 13:53:18 SHEATH 5FR [place] (QBU632) opened to sterile field. 13:53:19 Micropuncture VSI 4FR kit opened to sterile field. 13:53:19 TUBING Contrast Injection High Pressure (XPE718I) opened to sterile field. 13:53:19 Angiodynamics Omniflush 5Fr 65cm (16055165) opened to sterile field. 13:53:21 Access obtained with 4Fr micropunture. 13:53:32 A 5 Fr sheath was inserted into the Left Femoral artery 13:54:24 GLIDE WIRE ANGLE 180cm (GW4200) opened to sterile field. 13:54:25 GLIDE CATHETER 5FR ANGLED 65cm (CG507) opened to sterile field. 13:55:06 Fentanyl 25 mcg I.V. was administered by Dory Jason RN; for sedation; 13:55:15 Versed 0.5 mg I.V. was administered by Dory Jason RN; for sedation; 13:58:52 ROADRUNNER .035 260 glide wire (X91767) opened to sterile field. 14:01:38 PELLETIER 260 wire (C85523) opened to sterile field. 14:02:20 INFLATOR BasixTOUCH (TE8560) opened to sterile field. 14:02:20 INFLATOR BasixTOUCH (OS3691) opened to sterile field. 14:04:40 SHEATH 5FR [place] (PCY005) opened to sterile field. 14:04:41 [place] 7FR sheath opened to sterile field. 14:05:04 Local anesthetic to left femerol artery with Lidocaine 1% by Dg Velasquez MD.ADDITIONAL ACCESS 14:05:21 A 5 Fr sheath was inserted into the Right Femoral artery 14:19:43 Versed 1 mg I.V. was administered by Dory Jason RN; for sedation; 14:19:58 Fentanyl 50 mcg I.V. was administered by Dory Jason RN; for sedation; 14:22:05 see anesthesia note for tiva 14:26:36 PELLETIER 260 wire (X14054) opened to sterile field. 14:26:54 A Merit [facility] Pigtail VESSEL SIZING 5Fr 65CM catheter ([id number]) was advanced over the wire and used for . 14:29:43 [place] 7FR sheath opened to sterile field. 14:29:53 Sheath upsized to a 7 Fr Short. 14:30:08 Heparin Bolus 4000 units I.V. was administered by Dory Jason RN; Per physician; 14:30:26 Sheath upsized to a 7 Fr Short. 14:35:37 Versed 0.5 mg I.V. was administered by Dory Jason RN; for sedation; 14:35:50 Fentanyl 25 mcg I.V. was administered by Dory Jason RN; for sedation; 14:40:18 Fentanyl 25 mcg I.V. was administered by Dory Jason RN; for sedation; 14:40:31 Inflate balloon Inflation number: 3 A Evercross 5 x 4 x 135 Balloon ([id number]) was prepped and advanced across the Undefined1 , then inflated to 12 DEANDRE for 0:00 (min:sec) . 14:40:43 Inflate balloon Inflation number: 4 A Evercross 5 x 4 x 135 Balloon ([id number]) was prepped and advanced across the Undefined1 , then inflated to 12 DEANDRE for 0:08 (min:sec) . 14:41:11 Place stent Inflation Number: 2 A Visipro 9 x 37 x 135 Stent ([id number]) was prepped and advanced across the Undefined1 . The stent was deployed 14:42:43 Place stent Inflation Number: 1 A Visipro 9 x 37 x 135 Stent ([id number]) was prepped and advanced across the Undefined1 . The stent was deployed 14:43:24 Versed 0.5 mg I.V. was administered by Dory Jason RN; for sedation; 15:00:08 EVERFLEX 8 x 80 Stent ([id number]) was deployed across Undefined1 . 15:03:50 Inflate balloon Inflation number: 5 A Evercross 8 x 80 x 135 ([id number]) was prepped and advanced across the Undefined1 , then inflated to 10 DEANDRE for 0:04 (min:sec) . 15:07:09 Versed 0.5 mg I.V. was administered by Dory Jason RN; for sedation; 15:07:19 Fentanyl 25 mcg I.V. was administered by Dory Jason RN; for sedation; 15:09:46 Heparin Bolus 2000 units I.V. was administered by Dory Jason RN; Per physician; 15:14:57 EXOSEAL 7Fr (EX700) opened to sterile field. 15:15:12 Sheath removed intact; hemostasis achieved with Exoseal to the Left Femoral artery. 15:16:12 EXOSEAL 7Fr (EX700) opened to sterile field. 15:16:25 Sheath removed intact; hemostasis achieved with Exoseal to the Right Femoral artery. 15:17:18 Micropuncture VSI 4FR kit opened to sterile field. 15:25:38 Local anesthetic to right femoral artery with Lidocaine 1% by Dg Velasquez MD.ADDITIONAL ACCESS 15:25:49 A 6 Fr Short sheath was inserted into the Right Femoral artery 15:34:16 Cordis 6Fr BRITE TIP 11cm sheath opened to sterile field. 15:38:32 Heparin Flush Bag (1000units/500ml NS) 1 bags added to field was administered by Dg Velasquez MD; used for procedure; 15:39:05 Heparin Bolus 2000 units I.V. was administered by Dory Jason RN; used for procedure; 15:39:21 Fentanyl 25 mcg I.V. was administered by Dory Jason RN; for sedation; 15:39:33 Versed 0.5 mg I.V. was administered by Dory Jason RN; for sedation; 15:40:48 CXI Catheter 90cm (W73737) opened to sterile field. 15:48:55 CHOICE PT Extra Support J 300cm guide wire ([id number]) opened to steril e field. 15:49:06 Trailblazer 0.035 90cm catheter ([id number]-[id number]) opened to sterile field. 16:07:59 Angiojet PROXI 6Fr 90CM thrombectomy catheter opened to sterile field. 16:20:48 Pete Lowery CRNA present and monitoring patient for TIVA. 16:52:43 Heparin Bolus 1000 units I.V. was administered by Dory Jason RN; used for procedure; 17:02:43 Inflate balloon Inflation number: 6 A Evercross 4 x 100 x 135 Balloon ([id number]) was prepped and advanced across the Undefined1 , then inflated to 8 DEANDRE for 0:01 (min:sec) . 17:02:48 AMPLATZ Super Stiff 75cm wire ([id number]) opened to sterile field. 17:10:15 Cordis 5Fr BRITE TIP 11cm sheath opened to sterile field. 17:10:46 Navicross Support Straight .035 150cm catheter ([id number]) opened to sterile field. 17:24:12 Inflate balloon Inflation number: 7 A CHOCOLATE 4.0 x 120 x 135 balloon ([id number]) was prepped and advanced across the Undefined1 , then inflated to 9 DEANDRE for 3:19 (min:sec) . 17:36:42 5 x 120 protege stent placed lot#[id number] 17:39:30 SHEATH 6FR [place] (GZX473) opened to sterile field. 17:55:40 Procedure ended.(Physican Out) 17:56:49 DOC .035 wire (A06553) opened to sterile field. 18:10:42 Fluoroscopy time 31.30 minutes. 18:10:46 Flurop Dose total: 1259 18:10:46 Fluoroscopy dose: 1259 mGy 18:10:49 Sharps counted by scrub and verified by R.N. 18:10:53 Insertion/operative site no bleeding no hematoma. 18:17:01 Post-op/insertion site Left Femoral artery dressed using a 4 x 4 and Tegaderm. 18:17:10 Post left femerol artery:hematoma, soft 18:17:21 Post procedure: right dorsailis pedis pulse Doppler. 18:17:27 Post procedure: right posterior tibial pulse Doppler. 18:31:55 PT WAS REPREPPED RT.GROING WAS PREPPED WITH CHORLAPREP SOLUTION 18:40:12 Local anesthetic to right femoral artery with Lidocaine 1% by Dg Velasquez MD.ADDITIONAL ACCESS 18:40:34 EXOSEAL 6Fr (EX600) opened to sterile field. 19:05:44 Procedure ended.(Physican Out) 19:51:28 Post right femoral artery:hematoma, soft 19:51:30 Post procedure instruction explained to patient.Patient verbalizes understanding. 19:51:32 Procedure and supply charges have been captured, reviewed, submitted an d are correct. 19:52:39 see anesthesia note for post procedure anesthesia 20:00:29 Contrast amount:Isovue 300 270ml. 20:00:43 Report given to CVICU. 20:00:48 Patient transfered to CVICU with Bed. 20:21:00 Vital chart was stopped Intervention Summary Intervention Notes Time ActionType Lesion and Equipment Used Action# Pressure Duration Attributes 14:40:31 Inflate Undefined1 Evercross 5 x 4 x 3 12 00:00 balloon 135 Balloon ([id number]) 14:40:43 Inflate Undefined1 Evercross 5 x 4 x 4 12 00:08 balloon 135 Balloon ([id number]) 14:41:11 Place stent Undefined1 Visipro 9 x 37 x 2 0 00:00 135 Stent ([id number]) 14:42:43 Place stent Undefined1 Visipro 9 x 37 x 1 0 00:00 135 Stent ([id number]) 15:00:08 Deploy self Undefined1 EVERFLEX 8 x 80 1 expanding Stent stent ([id number]) 15:03:50 Inflate Undefined1 Evercross 9 x 80 5 10 00:04 balloon x 135 ([id number]) 17:02:43 Inflate Undefined1 Evercross 4 x 100 6 8 00:01 balloon x 135 Balloon ([id number]) 17:24:12 Inflate Undefined1 CHOCOLATE 4.0 x 7 9 03:19 balloon 80 x 135 balloon ([id number]) Device Usage Item Name Manufacture Quantity Catalog Number [facility] Part Cu rrent Minimal Lot# / Charge Number Stock Stock Serial# Code ACIST Syringe Acist Medical 1 06085 684278 522912 98 8211 20 (55561) Systems Inc ACIST Hand Acist Medical 1 81089 595593 770443 98 8639 5 Control (60571) Systems Inc ACIST Manifold Acist Medical 1 12796 856673 784091 98 8656 5 (68852) Systems Inc Bag Decanter Microtek 1 2001S 934880 27025 98 6813 5 (2001S) Medical Inc. Sterile Cardinal 1 [id number] 436803 99 8241 5 Angiographic [facility] Tegaderm 4 x 4 3M 1 1626W 807315 937982 99 2167 5 (1626W) DOC .035 wire [employer] 2 M48731 358348 99 9479 5 (M43572) SHEATH 5FR Terumo 2 FOQ896 273985 712247 99 5251 5 [place] (YHL086) Micropuncture VSI VSI VASCULAR 2 7266V 481669 99 9311 5 4FR kit SOLUTIONS TUBING Contrast [facility] 1 AVN293I 576624 681007 99 9439 5 Injection High Pressure (KJT989D) Angiodynamics Angiodynamics 1 [id number] 283085 715070 99 9939 5 Omniflush 5Fr 65cm (86943942) GLIDE WIRE ANGLE Terumo 1 AN1288 317212 700218 99 9615 5 180cm (NL2237) GLIDE CATHETER [employer]o 1 CG507 710121 99 9712 5 5FR ANGLED 65cm (CG507) ROADRUNNER .035 [employer] [facility] 1 H80705 151173 380746 99 9809 5 [id number] 260 glide wire (J24138) PELLETIER 260 wire [employer] [facility] 2 P29762 911556 97581 99 9578 5 (W67217) INFLATOR [facility] 2 NO5768 076750 075849 99 9769 5 BasixTOUCH (IR6623) [facility] 7FR [facility] 2 186343 025224 99 9955 5 6632005 sheath 1079668 [employer] UHF Pigtail [facility] 1 7602-20M65 853421 99 9931 5 VESSEL SIZING 5Fr 65CM catheter (885248O38) Visipro 9 x 37 x Medtronic 2 [id number] 568407 76136 99 9997 5 [id number] 135 Stent A169550 ([id number]) [place] 5 x 4 x [employer]onic 2 [id number] 413481 151605 99 9986 5 D161816 135 Balloon [id number] ([id number]) EVERFLEX 8 x 80 [employer]onic 1 [id number] 428803 246353 99 9996 5 P143466 Stent T750098 ([id number]) [employer] 9 x 80 [employer]tronic 1 [id number] 840049 [id number] 99 9998 5 x 135 ([id number]) EXOSEAL 7Fr Cardinal 2 EX700 504658 226503 99 9743 5 [id number] ([id number]) Health [id number] Cordis 6Fr BRITE Cardinal 1 [id number] 988438 99 9947 5 TIP 11cm sheath Health CXI Catheter 90cm Bionaturis 1 [id number] 187530 003389 99 9913 5 [id number] ([id number]) CHOICE PT Extra Center 1 [id number] 99 8991 5 [id number] Support J 300cm Scientific guide wire ([id number]) Trailblazer 0.035 Medtronic 1 [id number] 382635 2880973 99 9988 5 90cm catheter (ASC-035-090) Angiojet PROXI Center 1 [id number] 101746 573639 99 9984 5 6Fr 90CM Scientific thrombectomy catheter [place] 4 x 100 Medtronic 1 [id number] 978590 532973 99 9993 5 [id number] x 135 Balloon ([id number]) AMPLATZ Super Center 1 [id number] 630577 310812 99 9888 5 [id number] Stiff 75cm wire Scientific ([id number]) Cordis 5Fr BRITE Cardinal 1 [id number] 857599 99 9973 5 TIP 11cm sheath Health Navicross Support Terumo 1 [id number] 587825 189265 99 9984 5 Straight .035 150cm catheter ([id number]) CHOCOLATE 4.0 x Medtronic 1 [id number] O 545510 721181 99 9994 5 80 x 135 balloon TW ([id number]) SHEATH 6FR Terumo 1 [id number] 525101 905698 99 5717 40 [place] ([id number]) EXOSEAL 6Fr Cardinal 1 EX600 058069 626748 99 6660 10 [id number] (EX600) Health Signature Audit [place] Stage Time Signature Unsigned Intra-Procedure 01/20/2019 James Avila RT 8:20:53 PM (R) (CV) Signatures Monitor : James Avila RT Signature : Date : Time : [id number] [place] [address]
[2019-01-18 23:04] LABS: BASOPHILS 0.2 % (0-2); EOSINOPHILS 2.5 % (0-7); HEMATOCRIT 40.4 % (36.0-48.0); HEMOGLOBIN 13.1 g/dL (12-16); IMMATURE GRANULOCYTES 0.2 % (0-5); LYMPHOCYTES 17.4 % (15-50); MCH 32.3 pg (26.0-34.0); MCHC 32.4 g/dL (31.0-37.0); MCV 99.5 fL (80.0-100.0); MEAN PLATELET VOLUME 11.9 fL (7.4-10.4); MONOCYTES 6.3 % (2-11); NEUTROPHILS 73.4 % (40-80); RBC 4.06 10x6/uL (4.00-5.40); RDW 17.5 % (11.5-14.5); WBC 12.5 10x3/uL (4.8-10.8)
[2019-01-18 23:05] LABS: PLATELET COUNT 105 10x3/uL (130-400)
[2019-01-18 23:19] LABS: ALBUMIN 3.1 g/dL (3.4-5.0); ALKALINE PHOSPHATASE 125 U/L (46-116); ALT (SGPT) 43 U/L (10-68); BILIRUBIN - TOTAL 0.89 mg/dL (0.2-1.3); CALC OSMOLALITY 286 mosm/kg (275-300); CALCIUM 9.3 mg/dL (8.5-10.1); CARBON DIOXIDE 25.9 mmol/L (21.0-32.0); CHLORIDE - SERUM 96 mmol/L (98-107); POTASSIUM - SERUM 4.5 mmol/L (3.5-5.1); PROTEIN - SERUM 7.2 g/dL (6.4-8.2); SODIUM 135 mmol/L (136-145); UREA NITROGEN 41 mg/dL (7-18); eGFR NON AFRICAN AMERICAN 9 mL/min (90-120)
[2019-01-18 23:30] LABS: GLUCOSE 216 mg/dL (74-106)
[2019-01-18 23:34] LABS: CKMB 2.4 U/L (0.0-3.6); CREATINE KINASE 30 UL (21-215)
[2019-01-18 23:37] LABS: TROPONIN-I 1.197 ng/mL (0.000-0.060)
[2019-01-18 23:48] LABS: APTT 27.8 SECONDS (22.8-39.4); INR 1.22 (0.85-1.17); PROTIME 14.8 SECONDS (11.6-15.0)
[2019-01-19] VITALS (7 sets, daily range): BP systolic 149–168; BP diastolic 72–80; BMI 22.1
--- NOTE | 2019-01-19 00:30 | NUR ---
PT LAYING IN BED. RESPIRATIONS ARE EVEN AND UNLABORED. COLOR WNL FOR RACE NO DISTRESS IS NOTED. FAMILY MEMBER AT BEDSIDE. VSS. WILL CONTINUE TO MONITOR PATIENT.
--- NOTE | 2019-01-19 02:35 | NUR ---
RECEIVED FROM ER, DAUGHTER AT BEDSIDE, [id number] INFUSING, BED IS LOW, SRX2, CALL LIGHT IN REACH, WILL CONTINUE PLAN OF CARE
--- NOTE | 2019-01-19 04:56 | NUR ---
THICKENER OPERATOR SAYS FAMILY REFUSING LAB AT THIS TIME, FAMILY GOING TO TALK TO TO SEE IF THEY CAN GET A LINE
--- NOTE | 2019-01-19 07:00 | NUR ---
RECEIVED REPORT. ASSUMED CARE OF PATIENT. PATIENT WITH EYES CLOSED, HOB ELEVATED 30 DEGREES AND PATIENT LEANING TO HER LEFT SIDE. PATIENT DAUGHTER AT BEDSIDE IN CHAIR WITH EYES CLOSED. PATIENT NOTED TO HAVE A DARK PURPLE/BLACK AREA TO TIP OF RIGHT GREAT TOE. RESP EVEN AND UNLABORED. 77,SR ON TELEMETRY. NO DISTRESS.
--- NOTE | 2019-01-19 07:30 | NUR ---
CLOTH BOOKER MADE AWARE OF CARDIOLOGY CONSULT.
--- NOTE | 2019-01-19 11:29 | NUR ---
SPOKE WITH TOOTIE REGARDING PATIENTS FAMILY REQUESTING LINE INSERTION. NOT AVAILABLE FOR LINE PLACEMENT UNTIL 01/20/19. CONSULTED WITH AND HE DECLINED THIS IS [place] PATIENT. DOMINGO SOMMERS NOTIFIED. WILL REQUEST FROM FAMILY TO ALLOW US TO DRAW PERIPHERALLY UNTIL LINE CAN BE PLACED IN AM. ECHO AT BEDSIDE AT THIS TIME.
--- NOTE | 2019-01-19 12:20 | NUR ---
FSBS 165. PATIENTS DAUGHTER REQUESTED THAT NO INSULIN BE GIVEN PATIENT IS NOT EATING HARDLY ANYTHING. WILL RECHECK FSBS AT 1600.
--- NOTE | 2019-01-19 12:25 | NUR ---
MEDICATED FOR PAIN AT THIS TIME TO LEGS.
--- NOTE | 2019-01-19 12:32 | NUR ---
PATIENT BP 154/79. PATIENTS DAUGHTER REQUEST THAT NO BP OR DIURETICS BE GIVEN AT THIS TIME BECAUSE IT WILL BOTTOM HER MOTHER OUT. THIS DAUGHTER TAKES CARE FO HER MOTHER 5 DAYS PER WEEK AND SHE SAYS THAT UNTIL THE BP IS HIGHER LIKE 180'S, THEY HOLD HER BP MEDS AT HOME BECAUSE IT WILL DROP HER INTO THE 30'S/40'S. THIS SURVEYOR HYDROGRAPHIC HELP BP MEDICATION REQUESTED AT THIS TIME.
--- NOTE | 2019-01-19 12:34 | NUR ---
SPOKE WITH JUAN FROM XRAY. CTA OF LOWER EXT ORDERED. UNABLE TO GET CENTRAL LINE PLACED UNTIL IN THE AM, RENAL PROVIDERS AWARE. PATIENT ONLY HAS 22 GAUGE IN WRIST, NOT SUFFICIENT FOR CTA. PATIENT IS RENAL PATIENT AND WILL GET DIALYSIS TOMORROW. CTA MOVED TO AM AFTER LINE PLACEMENT AND THEN CAN RECEIVE DIALYSIS.
[2019-01-19 12:46] LABS: CKMB 3.1 U/L (0.0-3.6); CREATINE KINASE 37 UL (21-215)
[2019-01-19 12:49] LABS: TROPONIN-I 1.249 ng/mL (0.000-0.060)
[2019-01-19 12:52] LABS: CKMB 2.8 U/L (0.0-3.6); CREATINE KINASE 28 UL (21-215); TROPONIN-I 1.144 ng/mL (0.000-0.060)
--- NOTE | 2019-01-19 13:55 | NUR ---
SPOKE WITH TOOTIE HAS PLACED SOME OF PATIENTS MEDICATIONS ON HOLD. NEW ORDERS RECEIVED AND ENTERED INTO COMPUTER. PATIENTS DAUGHTER AT BEDSIDE WITH PAPERWORK THAT PATIENT IS SCHEDULED TO HAVE AN AFRO HERE AN OUTPT TOMORROW AM. GAVE PATIENTS DAUGHTER OUTPT EXTENSION AND TOLD TO CALL IN THE AM TO LET THEM KNOW SHE IS IN THE HOSPITAL AND ADMITTED.
--- NOTE | 2019-01-19 14:08 | NUR ---
MEDICATED FOR PAIN AT THIS TIME. NO DISTRESS.
--- NOTE | 2019-01-19 16:00 | NUR ---
AT BEDSIDE FOR EJ PLACEMENT AT 1530. PATIENT VERY UNCOOPERATIVE AT THIS TIME AFTER TRYING FOR 30 MINUTES.
--- NOTE | 2019-01-19 16:20 | NUR ---
CONSENT SIGNED AND PLACED ON CHART FOR CVL PLACEMENT BY .
--- NOTE | 2019-01-19 17:50 | NUR ---
COMPLETED PLACEMENT OF CVL LINE AT THIS TIME AND HE VERIFIED LINE PLACEMENT WITH ULTRASOUND AT BEDSIDE. PER , LINE IS GOOD TO USE. JUAN IN XRAY CALLED AND INFORMED PATIENT HAS A LINE NOW AND THE CTA NEEDS TO BE COMPLETED. JUAN TO UNIT SOON TO GET PATIENT.
--- NOTE | 2019-01-19 18:01 | NUR ---
OFF UNIT VIA WHEELCHAIR FOR CTA OF LOWER EXTREMITIES AFTER PLACED CVL LINE TO RIGHT FEMORAL VEIN AT BEDSIDE.
--- NOTE | 2019-01-19 18:21 | NUR ---
FSBS 200. 2 UNITS HUMULIN R ADMINISTERED PER SLIDING SCALE AT THIS TIME.
--- NOTE | 2019-01-19 19:13 | NUR ---
CALLED ANSWERING SERVICE AT 1900 AND HAD PAGED IN ORDER TO GIVE HIM RESULTS OF CTA OF LOWER EXTREMITIES.
[2019-01-19 19:29] LABS: CKMB 2.6 U/L (0.0-3.6); CREATINE KINASE 26 UL (21-215)
[2019-01-19 19:33] LABS: TROPONIN-I 1.159 ng/mL (0.000-0.060)
--- NOTE | 2019-01-19 20:27 | NUR ---
EVENING ROUNDS COMPLETED. REPORT RECEIVED. PT SITTING UP IN BED WITH EYES OPEN, RR EVEN AND UNLABORED. NO S/S OF DISTRESS NOTED. SPOKE TO TOOTIE VALENTE AND READ PRELIMINARY RADIOLOGIST REPORT OF CTA LOWER EXTREMITY, SHE GAVE ORDERS TO CONSULT INTERVENTIONAL RADIOLOGY FOR REVASCULARIZATION OF LOWER EXTREMITIES. PT DENIES FURTHER NEEDS AT THIS TIME. INTRODUCED SELF TO PT AND FAMILY. CALL LIGHT IN REACH. WILL CTM.
--- NOTE | 2019-01-19 21:21 | NUR ---
RECEIVED CALL BACK FROM DR IBRAHIM, . READ REPORT FROM RADIOLOGY, INSTRUCTED BY DR IBRAHIM TO CALL DR GIL AND NOTIFY HIM OF REPORT. PAGED DR GIL, CURRENTLY AWAITING CALL BACK.
--- NOTE | 2019-01-19 21:30 | NUR ---
DR GIL HAS BEEN NOTIFIED OF REPORTS FROM CTA LOWER EXTREMITY
[2019-01-19 23:24] LABS: HEMOGLOBIN 12.9 g/dL (12-16); MCH 32.7 pg (26.0-34.0); MCHC 33.1 g/dL (31.0-37.0); RBC 3.94 10x6/uL (4.00-5.40); RDW 17.5 % (11.5-14.5); WBC 12.6 10x3/uL (4.8-10.8)
[2019-01-19 23:35] LABS: INR 1.32 (0.85-1.17); PROTIME 15.9 SECONDS (11.6-15.0)
[2019-01-19 23:36] LABS: APTT 31.6 SECONDS (22.8-39.4)
--- NOTE | 2019-01-19 23:43 | NUR ---
HEPARIN INFUSION INITIATED BY JENNY NEVAREZ RN, CURRENTLY RUNNING AT 1500 UNITS PER HOUR IN ACCORDANCE WITH HEPARIN PROTOCOL.
[2019-01-20] VITALS (15 sets, daily range): BP systolic 91–158; BP diastolic 46–98; BMI 29.4
--- NOTE | 2019-01-20 03:58 | NUR ---
PT FAMILY REFUSED EVENING HYDRALAZINE, STATING CONCERNS FOR BP "BOTTOMING OUT". REQUESTS TO HAVE EVENING BP MEDICATION RE EVALUATED BY PHYSICIAN, WILL PASS ONTO ONCOMING SHIFT.
--- NOTE | 2019-01-20 04:00 | NUR ---
I have reviewed this patient and I concur with the Shift Assessment completed by the Licensed Practical Nurse today this shift.
[2019-01-20 05:30] LABS: BASOPHILS 0.3 % (0-2); EOSINOPHILS 1.2 % (0-7); HEMOGLOBIN 12.6 g/dL (12-16); IMMATURE GRANULOCYTES 0.2 % (0-5); LYMPHOCYTES 17.6 % (15-50); MCH 32.8 pg (26.0-34.0); MCHC 33.2 g/dL (31.0-37.0); MEAN PLATELET VOLUME 12.3 fL (7.4-10.4); MONOCYTES 7.9 % (2-11); NEUTROPHILS 72.8 % (40-80); PLATELET COUNT 115 10x3/uL (130-400); RBC 3.84 10x6/uL (4.00-5.40); RDW 17.6 % (11.5-14.5); WBC 13.4 10x3/uL (4.8-10.8)
[2019-01-20 05:42] LABS: BILIRUBIN - TOTAL 0.73 mg/dL (0.2-1.3); CALCIUM 7.1 mg/dL (8.5-10.1); POTASSIUM - SERUM 3.9 mmol/L (3.5-5.1)
--- NOTE | 2019-01-20 05:42 | NUR ---
MORNING LABS DRAWN, PT CURRENTLY SITTING UP IN BED WITH EYES OPEN, RR EVEN AND UNLABORED. HEPARIN INFUSING AT 1300 UNITS PER HOUR. NO S/S OF DISTRESS NOTED. CALL LIGHT IN REACH. WILL CTM.
[2019-01-20 05:44] LABS: ANION GAP 19.8 mmol/L (8-16); CARBON DIOXIDE 19.1 mmol/L (21.0-32.0)
--- NOTE | 2019-01-20 05:52 | NUR ---
MORNING aPTT RESULTS RECEIVED, HOLDING HEPARIN FOR ONE HOUR IN ACCORDANCE WITH HEPARIN PROTOCOL. REDRAW TO BE TIMED FOR 1253. WILL NOTIFY ONCOMING NURSE.
[2019-01-20 08:16] LABS: INR 1.43 (0.85-1.17); PROTIME 16.8 SECONDS (11.6-15.0)
[2019-01-20 08:17] LABS: APTT 101.7 SECONDS (22.8-39.4)
--- NOTE | 2019-01-20 08:30 | NUR ---
PT RESTING IN BED, FAMILY AT BEDSIDE, SHIFT ASSESSMENT PERFORMED. DENIES ANY NEEDS AT THIS TIME. WILL CONT TO FOLLOW POC
--- NOTE | 2019-01-20 10:20 | NUR ---
CONSENTS SIGNED FOR IVR AND ALL QUESTIONS ANSWERED, WILL CONT TO FOLLOW POC
--- NOTE | 2019-01-20 10:38 | NUR ---
PT FAMILY ALERTED NURSE THAT THEY HAVE NOT BEEN GIVING PT ALL HER BP MEDS BECAUSE SHE DROPS TOO LOW. FAMILY REFUSED TO LET PT HAVE ANY BP MEDICATIONS YESTERDAY AND THIS AM PT BP WAS 148/98. FAMILY ALLOWED NURSE TO GIVE PT LISINOPRIL BUT NO OTHER BP MEDICATIONS. NOTIFIED .
--- NOTE | 2019-01-20 11:47 | NUR ---
PT RESTING IN BED, FAMILY AT BEDSIDE, DENIES ANY NEEDS AT THIS TIME, WILL CONT TO FOLLOW POC
--- NOTE | 2019-01-20 13:00 | NUR ---
PT LEFT FLOOR FOR IVR PROCEDURE
--- NOTE | 2019-01-20 13:27 | NUR ---
PT PTT CAME BACK, 74.3 ACCORDING TO HEPARIN PROTOCOL NO CHANGE IN RATE IS NEEDED AND RECHECK PTT IN THE AM.
[2019-01-20 16:57] LABS: HEMATOCRIT 32.8 % (36.0-48.0); HEMOGLOBIN 10.8 g/dL (12-16)
--- NOTE | 2019-01-20 18:42 | NUR ---
RADIOLOGY BROUGHT BACK PT BED AND TELEMETRY TO FLOOR. TURNED IN TELEMETRY TO CREDIT COUNSELOR
[2019-01-20 19:35] LABS: HEMATOCRIT 26.9 % (36.0-48.0)
[2019-01-20 19:40] LABS: HEMOGLOBIN 8.6 g/dL (12-16)
--- NOTE | 2019-01-20 20:15 | NUR ---
PT TO ROOM CV04 ACCOMPANIED BY IR STAFF AND JOSE HENLEY CRNA, CV MONITORS ESTABLISHED WITH ALARMS ON, BRUISING NOTED TO RT GROIN/ABD AREA-MD AWARE, PT ON VENT, 7.5 ETT 23 AT LIP, CRACKLES AUSC BILATERALLY, BLE PULSES DOPPLARED AND MARKED, NECROTIC GREAT RT TOE NOTED, LT UPPER ARM FISTULA INTACT, POSITIVE BRUIT AND THRILL, BILAT SOFT WRIST RESTRAINTS IN PLACE, TEMP NOTED TO BE 93.4, WILL PLACE MARIO HUGGER. IR STAFF AND CRISTIANA REMAIN IN ROOM, WILL MONITOR CLOSELY.
[2019-01-20 20:16] LABS: INR 1.94 (0.85-1.17); PROTIME 21.5 SECONDS (11.6-15.0)
[2019-01-20 20:18] LABS: APTT > 200.0 SECONDS (22.8-39.4)
--- NOTE | 2019-01-20 20:24 | NUR ---
1905- PROCEDURE END 1914-PT AWAKE AND MOVING ALL EXTREMITIES. CALLED ANESTHESIA TO INTUBATE PT. DONE 1999- TO CVICU ON VENT. RIGHT AND LEFT GROIN WITH BRUISING NOTED BUT SOFT TO TOUCH. REORT TO CVICU NURSES.
--- NOTE | 2019-01-20 20:35 | NUR ---
1/2 UNITS OF PRBC'S INITIATED PER MD ORDER, WILL MONITOR.
--- NOTE | 2019-01-20 20:41 | NUR ---
SPOKE WITH DR TODD VIA TELEPHONE, UPDATED REGARDING PT, ORDERS RECEIVED.
--- NOTE | 2019-01-20 21:15 | NUR ---
PT FAMILY IN FOR VISITATION, UPDATE GIVEN, ALL QUESTIONS ANSWERED, NEEDS DENIED AT THIS TIME.
--- NOTE | 2019-01-20 22:12 | NUR ---
2/2 UNITS OF FFP INFUSED PER MD ORDER, PT TOLERATED WITHOUT DIFFICULTY/ADVERSE REACTION, TEMP 93.9, MARIO FERGUSON REMAINS IN PLACE ON HIGH SETTING-WILL MONITOR CLOSELY.
--- NOTE | 2019-01-20 23:05 | NUR ---
2/2 UNITS OF PRBC'S COMPLETED, PT TOLERATED WELL, TEMP 94.0-MARIO HUGGER IN PLACE, WILL CONT TO MONITOR CLOSELY.
[2019-01-21] VITALS (24 sets, daily range): BP systolic 92–150; BP diastolic 42–65
--- NOTE | 2019-01-21 01:27 | NUR ---
RECHECK OF TEMP 98.1 ORAL, MARIO HUGGER REMAINS IN PLACE, VSS, CONT TO MONITOR. NO INCREASE NOTED IN HEMATOMA.
[2019-01-21 02:47] LABS: HEMATOCRIT 32.1 % (36.0-48.0); LYMPHOCYTES 3.2 % (15-50); MCH 32.5 pg (26.0-34.0); MCHC 34.3 g/dL (31.0-37.0); MEAN PLATELET VOLUME 12.6 fL (7.4-10.4); NEUTROPHILS 90.9 % (40-80); RBC 3.38 10x6/uL (4.00-5.40); RDW 19.8 % (11.5-14.5)
[2019-01-21 02:54] LABS: PLATELET COUNT 65 10x3/uL (130-400)
[2019-01-21 02:55] LABS: APTT 30.4 SECONDS (22.8-39.4); INR 1.4 (0.85-1.17); PROTIME 16.6 SECONDS (11.6-15.0)
--- NOTE | 2019-01-21 02:57 | NUR ---
LAB RESULTS NOTED, VSS, CONT TO MONITOR. NO INCREASE IN SIZE OF RT GROIN/ABD HEMATOMA NOTED, ICE PACKS REMAIN IN PLACE PER MD ORDER.
[2019-01-21 03:12] LABS: PLATELET ESTIMATE DECREASED
--- NOTE | 2019-01-21 03:30 | NUR ---
REASSESSMENT PER FLOWSHEET, NO SIGNIFICANT CHANGES NOTED AT THIS TIME, BLE PULSES REMAIN ABLE TO BE DOPPLARED, ICE PACKS REPLACED TO ABD/GROIN AREA, VSS. TEMP 98.6, MARIO FERGUSON PLACED ON MED SETTING-WILL MONITOR CLOSELY.
--- NOTE | 2019-01-21 05:01 | NUR ---
DR TODD CALLED, UPDATED ON PT CONDITION, NO FURTHER ORDERS AT THIS TIME, VSS, CONT TO MONITOR.
--- NOTE | 2019-01-21 05:45 | NUR ---
ORAL TEMP 99.6, MARIO HUGGER PLACED ON STANDBY MODE, WILL CONT POC.
[2019-01-21 06:08] LABS: ALBUMIN 2.5 g/dL (3.4-5.0); BILIRUBIN - TOTAL 1.3 mg/dL (0.2-1.3); CARBON DIOXIDE 16.8 mmol/L (21.0-32.0); PROTEIN - SERUM 5.6 g/dL (6.4-8.2)
[2019-01-21 06:27] LABS: ANION GAP 27.7 mmol/L (8-16); CREATININE - SERUM 6.3 mg/dL (0.6-1.3); POTASSIUM - SERUM 5.5 mmol/L (3.5-5.1)
--- NOTE | 2019-01-21 07:00 | NUR ---
REC'D SEDATED W/ PROPOFOL ON VENT. AFVSS. REPOSITIONED. FAMILY AT BEDSIDE.
[2019-01-21 08:45] LABS: INR 1.46 (0.85-1.17); PROTIME 17.1 SECONDS (11.6-15.0)
--- NOTE | 2019-01-21 09:02 | NUR ---
ATTEMPTED SEDATION VACATION. BECOMES AGITATED- PULLS AT RESTRAINTS/ GRIMACES. PROPOFOL RESTARTED.
[2019-01-21 09:05] LABS: HEMATOCRIT 32.8 % (36.0-48.0); HEMOGLOBIN 11.1 g/dL (12-16); MCH 31.4 pg (26.0-34.0); MCHC 33.8 g/dL (31.0-37.0); MEAN PLATELET VOLUME 11.5 fL (7.4-10.4); RBC 3.54 10x6/uL (4.00-5.40)
[2019-01-21 09:28] LABS: MCV 92.7 fL (80.0-100.0); PLATELET COUNT 85 10x3/uL (130-400)
--- NOTE | 2019-01-21 09:30 | NUR ---
CONT TO GRIMACE/ PULL AT RESTRAINTS. PROPOFOL INCREASED TO 25 MCG/KG/HR.
--- NOTE | 2019-01-21 10:00 | NUR ---
CALM AT PRESENT. FAMILY AT BEDSIDE.
[2019-01-21 10:05] LABS: ANISOCYTOSIS OCC; LYMPHOCYTES 6 % (15-50); MONOCYTES 3 % (2-11); NEUTROPHILS 89 % (40-80); PLATELET ESTIMATE DECREASED
--- NOTE | 2019-01-21 11:15 | NUR ---
FAMILY IN AND UPDATED.
--- NOTE | 2019-01-21 11:30 | NUR ---
REASSESSED.DP/ PT PULSES VERIFIED W/ DOPPLER.
--- NOTE | 2019-01-21 13:30 | NUR ---
NTG GTT TITRATED OFF AT THIS TIME. AWAKENS EASILY.
--- NOTE | 2019-01-21 14:15 | NUR ---
PT ARRIVED ON UNIT VIA BED, HOOKED TO MONITORS, PT SEDATED ON VENT, VSS, WILL CON'T TO MONITOR
--- NOTE | 2019-01-21 14:25 | NUR ---
DAUGHTER AT BEDSIDE, UPDATE GIVEN
--- NOTE | 2019-01-21 14:30 | NUR ---
TRANSFERRED TO ICU ROOM 2306 VIA BED AFTER REPORT GIVEN TO EDGARDO HERNÁNDEZ. FAMILY ACCOMPANIES.
[2019-01-21 14:44] LABS: BASOPHILS 0.1 % (0-2); EOSINOPHILS 0.1 % (0-7); HEMATOCRIT 31.8 % (36.0-48.0); HEMOGLOBIN 10.5 g/dL (12-16); IMMATURE GRANULOCYTES 0.7 % (0-5); LYMPHOCYTES 6.7 % (15-50); MCH 30.7 pg (26.0-34.0); MEAN PLATELET VOLUME 12.7 fL (7.4-10.4); MONOCYTES 7.2 % (2-11); NEUTROPHILS 85.2 % (40-80); PLATELET COUNT 94 10x3/uL (130-400); RBC 3.42 10x6/uL (4.00-5.40); RDW 19.1 % (11.5-14.5); WBC 17.6 10x3/uL (4.8-10.8)
[2019-01-21 14:52] LABS: INR 1.4 (0.85-1.17); PROTIME 16.6 SECONDS (11.6-15.0)
--- NOTE | 2019-01-21 15:00 | NUR ---
REASSESSED WITH NO REAL CHANGE- REMAINS OFF NTG, AWAKENS EASILY. TAKING H2O W/O N/V.
--- NOTE | 2019-01-21 15:07 | NUR ---
REASSESSMENT COMPLETE, NO CHANGES NOTED, REPOSITIONED FOR COMFORT, ORAL CARE PROVIDED, WILL CON'T TO MONITOR
--- NOTE | 2019-01-21 17:15 | NUR ---
DR. PEOPLES AT BEDSIDE, UPDATE GIVEN, SPOKE WITH FAMILY
--- NOTE | 2019-01-21 19:10 | NUR ---
Received patient sedated in bed with eyes closed, assessment completed per flowsheet. Patient opens eyes/withdraws from noxious stimuli. S1/S2 noted NSR on telemetry with HR 67, rythmic and regular. Vent settings SIMV R-14 V-500 30% P-5 PS-10 with O2 sat 98%, crackles noted bilateral upper and mid with diminished lower. Abdomen is round/soft with bowel sounds hypoactive x4, non-tender. R groin CVL dressing CDI, patent with fluids infusing. Upper pulses palpable with lower pulses weak/doppler, cap refill < 3 sec with skin warm/dry. Oral care/suctioning provided, repositioned for comfort. No further needs at this time, see flowsheet for details. All VSS and will continue to monitor.
[2019-01-21 20:58] LABS: BASOPHILS 0.1 % (0-2); EOSINOPHILS 0.3 % (0-7); HEMATOCRIT 36.2 % (36.0-48.0); HEMOGLOBIN 12.2 g/dL (12-16); IMMATURE GRANULOCYTES 0.7 % (0-5); LYMPHOCYTES 7.7 % (15-50); MCH 31.4 pg (26.0-34.0); MCHC 33.7 g/dL (31.0-37.0); MCV 93.1 fL (80.0-100.0); MEAN PLATELET VOLUME 12.1 fL (7.4-10.4); MONOCYTES 6.8 % (2-11); NEUTROPHILS 84.4 % (40-80); RBC 3.89 10x6/uL (4.00-5.40); RDW 19.7 % (11.5-14.5)
--- NOTE | 2019-01-21 21:00 | NUR ---
Patient family at bedside, discussed medication/extubation process with all questions aswered to satisfaction. HS meds given as ordered, oral care/suctioning provided. All VSS and will continue to monitor.
[2019-01-21 21:02] LABS: PLATELET COUNT 69 10x3/uL (130-400)
[2019-01-21 21:08] LABS: INR 1.23 (0.85-1.17)
--- NOTE | 2019-01-21 23:10 | NUR ---
Reassessment completed per flowsheet, no changes noted from previous assessment. S1/S2 noted NSR on telemetry with HR 62, rythmic and regular. Vent settings unchanged from previous with O2 sat 100%, crackles noted bilateral upper and mid with diminished lower. Upper pulses palpable with lower pulses weak/doppler, skin warm/dry with 1+ edema noted all. Oral care/suctioning provided, repositioned for comfort. No further needs at this time, see flowsheet for details. All VSS and will continue to monitor.
[2019-01-22] VITALS (24 sets, daily range): BP systolic 110–133; BP diastolic 49–72
[2019-01-22 00:34] LABS: APTT 32.4 SECONDS (22.8-39.4)
--- NOTE | 2019-01-22 01:00 | NUR ---
Full bed bath/linen change performed, tolerated well. Oral care/suctioning provided, no further needs and will continue to monitor.
--- NOTE | 2019-01-22 03:10 | NUR ---
Reassessment completed per flowsheet, no changes noted from previous assessment. S1/S2 noted NSR on telemetry with HR 64, rythmic and regular. Vent settings unchanged from previous with O2 sat 100%, crackles noted bilateral upper and mid with diminished lower. R lower abdomen incision dressing changed, small bloody drainage noted. R groin CVL dressing changed, small bruising noted. Oral care/suctioning provided, repositioned for comfort. See flowsheet for details, all VSS and will continue to monitor.
[2019-01-22 06:21] LABS: HEMATOCRIT 31.8 % (36.0-48.0); HEMOGLOBIN 10.9 g/dL (12-16); MCH 31.1 pg (26.0-34.0); MCHC 34.3 g/dL (31.0-37.0); MCV 90.6 fL (80.0-100.0); MEAN PLATELET VOLUME 12.8 fL (7.4-10.4); PLATELET COUNT 74 10x3/uL (130-400); RBC 3.51 10x6/uL (4.00-5.40); RDW 18.9 % (11.5-14.5); WBC 21.8 10x3/uL (4.8-10.8)
[2019-01-22 06:25] LABS: ALBUMIN 2.3 g/dL (3.4-5.0); BILIRUBIN - TOTAL 1.03 mg/dL (0.2-1.3); CALCIUM 9.5 mg/dL (8.5-10.1); MAGNESIUM - SERUM 1.9 mg/dL (1.8-2.4); PROTEIN - SERUM 5.6 g/dL (6.4-8.2)
[2019-01-22 06:29] LABS: ANION GAP 21.8 mmol/L (8-16); CARBON DIOXIDE 22.4 mmol/L (21.0-32.0); PHOSPHOROUS 9.2 mg/dL (2.5-4.9); POTASSIUM - SERUM 4.2 mmol/L (3.5-5.1)
--- NOTE | 2019-01-22 07:05 | NUR ---
REPORT RECIEVED, SHIFT ASSESSMENT COMPLETE, PT IS SEDATED ON VENT, ON 30% FIO2 WITH 99% O2 SAT. ALL PPP, VSS, WILL CON'T TO MONITOR
--- NOTE | 2019-01-22 07:24 | NUR ---
REPORT RECIEVED, SHIFT ASSESSMENT COMPLETE, PT IS SEDATED ON VENT, ON 30% FIO2 WITH 975 O2 SAT. ALL PPP, VSS, WILL CON'T TO MONITOR
--- NOTE | 2019-01-22 07:54 | NUR ---
UPDATE GIVEN TO DR. CHAVEZ OVER PHONE, ORDER TO HOLD HEPARIN GTT GIVEN
[2019-01-22 07:57] LABS: LYMPHOCYTES 9 % (15-50); MONOCYTES 7 % (2-11); NEUTROPHILS 84 % (40-80); PLATELET ESTIMATE DECREASED
[2019-01-22 07:59] LABS: ANISOCYTOSIS OCC
--- NOTE | 2019-01-22 09:15 | NUR ---
COMPLETE BATH AND LINEN CHANGE, PT TOLERATED WELL
--- NOTE | 2019-01-22 09:50 | NUR ---
SHASHANK FROM RADIOLOGY AT BEDSIDE, UPDATE GIVEN
--- NOTE | 2019-01-22 09:54 | NUR ---
NUTRITION F/U CHART REVIEWED. PT REMAINS ON VENT. NURSING REPORTS POSSIBLE EXTUBATION TODAY. POSSIBLE TUBE FEEDS IF UNABLE TO EXTUBATE. RD FOLLOWING
--- NOTE | 2019-01-22 11:00 | NUR ---
REASSSSMENT COMPLETE, NO CHANGES NOTED, WILL CON'T TO MONITOR
--- NOTE | 2019-01-22 12:15 | NUR ---
DR. PEOPLES AT BEDSIDE, UPDATE GIVEN
--- NOTE | 2019-01-22 12:23 | NUR ---
SUICIDE RISK SCREENING PENDING REMOVAL FROM VENT
--- NOTE | 2019-01-22 15:00 | NUR ---
REASSESSMENT COMPLETE PER FLOW SHEET. VSS. NO NEW CHANGES
--- NOTE | 2019-01-22 17:00 | NUR ---
ORAL ENDOTRACH CARE ADM. REPOSITIONED FOR COMFORT. FAMILY AT BEDSIDE GIVEN UPDATE
--- NOTE | 2019-01-22 19:10 | NUR ---
Received patient resting in bed with eyes closed, assessment completed per flowsheet. Responds to deep stimuli, withdraws from noxious stimuli. NGT R nare secured to LIWS. ETT 7.5 @ 23cm secured. S1/S2 noted NSR on telemetry with HR 81, rythmic and regular. Vent settings SIMV R-8 V-500 30% P-5 PS-10 with O2 sat 98%, crackles noted bilateral upper and mid with diminished lower. Abdomen is round/soft with bowel sounds hypoactive x4, non-tender. R lower abdomen incision dressing CDI, L groin dressing CDI. Upper pulses palpable with lower pulses weak, cap refill < 3 sec. R great toe with necrotic tissue, L great toe discoloration observed. Oral care/suctioning provided, repositioned for comfort. No further needs at this time, see flowsheet for details. All VSS and will continue to monitor.
--- NOTE | 2019-01-22 20:00 | NUR ---
Patient Glucose < 60, 25ml D50 given as ordered and will recheck in 30 min.
--- NOTE | 2019-01-22 21:10 | NUR ---
Patient family at bedside for visitation, discussed current status/vent weaning procedures with all questions answered to satisfaction. HS meds given without difficulty, oral care/suctioning provided. All VSS and will continue to monitor.
--- NOTE | 2019-01-22 23:09 | NUR ---
Reassessment completed per flowsheet, no changes noted from previous assessment. NGT to LIWS, ETT secured. S1/S2 noted NSR on telemetry with HR 85, rythmic and regular. Vent settings unchanged from previous with O2 sat 99%, crackles noted bilateral upper and mid with diminished lower. Upper pulses palpable with lower pulses weak, skin warm/dry. R great toe with necrotic tissue, L great toe discoloration/cool to touch. Oral care/suctioning provided, repositioned for comfort. No further needs at this time, see flowsheet for details. All VSS and will continue to monitor.
[2019-01-23] VITALS (25 sets, daily range): BP systolic 93–129; BP diastolic 53–79
--- NOTE | 2019-01-23 01:10 | NUR ---
Patient resting in bed with eyes closed, oral care/suctioning provided by RT. Repositioned for comfort, no further needs and will continue to monitor.
--- NOTE | 2019-01-23 03:10 | NUR ---
Reassessment completed per flowsheet, no changes noted from previous assessment. S1/S2 noted NSR on telemetry with HR 89, rythmic and regular. Vent settings unchanged from previous with O2 sat 99%, crackles noted bilateral upper and mid with diminished lower. R lower abdomen dressing CDI, R groin dressing CDI dressing CDI. Upper pulses palpable with lower pulses weak, L great toe discoloration with skin cool/dry. Oral care/suctioning provided, repositioned for comfort. No further needs at this time, see flowsheet for details. All VSS and will continue to monitor.
[2019-01-23 04:20] LABS: ANION GAP 19.5 mmol/L (8-16); CALCIUM 9.1 mg/dL (8.5-10.1); CARBON DIOXIDE 23.3 mmol/L (21.0-32.0); CREATININE - SERUM 5.6 mg/dL (0.6-1.3); PHOSPHOROUS 9.8 mg/dL (2.5-4.9); POTASSIUM - SERUM 4.8 mmol/L (3.5-5.1); VANCOMYCIN - RANDOM 25.3 ug/mL (10.0-20.0)
--- NOTE | 2019-01-23 05:00 | NUR ---
Radiology at bedside, patient tolerated well. Patient opened eyes to stimuli, did not follow instructions. No s/s of distress at this time, all VSS and will continue to monitor.
--- NOTE | 2019-01-23 07:00 | NUR ---
REPORT RECIEVED FROM THE OFF GOING RN. SEE ASSESSMENT IN THE PTS FLOW SHEET. PT NOT ON ANY SEDATION. PT EYES OPEN TO VERBAL STIMULI AND RESPONDS BY SHAKING HER HEAD WHENEVER ORAL CARE WAS PREFORMED BUT PT WILL NO FOLLOW DIRECTIONS. 7.5 ETT NOTED 23 AT THE LIP. NGT TO THE RIGHT NARE NOTED. LIS. PLACEMENT CHECKED VIA ASCULTAION. NO RESIDUAL NOTED. RIGHT GROIN CVL NOTED C/D/I. BILATERAL GROIN SITES C/D/I. BRUSING NOTED TO LOWER ABD AND BILATERAL THIGHS. BILATEARL DORALIS PEDIS AND POSTERIOR TIBAIL PULSES DOPPLERABLE. RIGHT GREAT TO BLACK AND RIGHT FOOD DISCOLORATION NOTED. LEFT UPPER ARM FISTULLA NOTED. THRILL PALPABLE AND BRUIT ASCULTATED. CALL LIGHT IN REACH. WILL CONT POC.
[2019-01-23 07:03] LABS: HEMATOCRIT 31.4 % (36.0-48.0); HEMOGLOBIN 10.6 g/dL (12-16); MCH 30.9 pg (26.0-34.0); MCHC 33.8 g/dL (31.0-37.0); MCV 91.5 fL (80.0-100.0); PLATELET COUNT 54 10x3/uL (130-400); RBC 3.43 10x6/uL (4.00-5.40); RDW 19.6 % (11.5-14.5); WBC 26.8 10x3/uL (4.8-10.8)
[2019-01-23 09:34] LABS: LYMPHOCYTES 11 % (15-50); MONOCYTES 9 % (2-11); NEUTROPHILS 77 % (40-80); PLATELET ESTIMATE DECREASED
[2019-01-23 09:35] LABS: ANISOCYTOSIS 1+; HYPOCHROMASIA OCC; POLYCHROMASIA OCC
--- NOTE | 2019-01-23 09:44 | NUR ---
RT AND FAMILY AT THE PTS BEDSIDE. NO CHANGE IN NEURO STATUS. REMAINS TO BE ALERT AND RESPONDS TO VERBAL STIMULI. BUT WILL NOT FOLLOW COMMANDS.
--- NOTE | 2019-01-23 09:55 | NUR ---
ASSISTED RT AND RADIALOGY WITH TAKING THE PT TO GET A HEAD CT. PT NON COOPERATIVE AND STILL REMAINS TO NOT FOLLOW COMMANDS. PT BACK TO UNIT. VSS. WILL CONT POC.
--- NOTE | 2019-01-23 11:30 | NUR ---
DR PEOPLES IN THE UNIT AND AT THE PTS BEDSIDE. SEE ORDERS ABOUT TUBEFEEDINGS.
--- NOTE | 2019-01-23 11:46 | NUR ---
DIALYSIS NURSE AT THE PTS BEDSIDE.
--- NOTE | 2019-01-23 13:55 | NUR ---
HEAD CT SHOWS NO BLEED. GIVING ORAL ASA AND PLAVIX PER DR LOPEZ ORDERS.
--- NOTE | 2019-01-23 15:18 | NUR ---
DIALYSIS NURSE STATED THAT SHE PULLED ABOUT 1L FROM THE PT. PT TOLERATED DIALYSIS WELL.
--- NOTE | 2019-01-23 17:42 | NUR ---
DRESSINGS REMOVED. SITES C/D/I WITH NO DRAINAGE. SITES LEFT OPEN TO AIR. NO S/SX OF INFECTION NOTED. WILL CONT POC.
--- NOTE | 2019-01-23 18:31 | MORECARE ---
CASE MANAGEMENT DISCHARGE SUMMARY PATIENT: JESSY JOHNSON UNIT: [id number] ADM DATE: 01/19/19 AGE: 78 : 40 SEX: F ROOM/BED: D.2306 AUTHOR: MAKAYLA MORRISON PHYSICIAN: REFERRING PHYSICIAN: ARMANDO IBRAHIM MD DATE OF SERVICE: 01/23/19 Discharge Plan Patient Name: JESSY JOHNSON Facility: [facility]:[place] : 1940 Planned Disposition: Inpatient Rehab Anticipated Discharge Date: Discharge Date: Expected LOS: Initial Reviewer: [email or web address] Initial Review Date: 01/23/2019 Generated: 01/23/19 7:31 pm Patient Name: JESSY JOHNSON Page [phone] at 1831 All edits/amendments must be made on the electronic document DICTATION DATE: 01/23/191829 CAN MARKER: JUSTYNA 01/23/191829 RPT#: [id number] DC DATE: STATUS: ADM IN [facility] [address] [place] [address] END OF REPORT
--- NOTE | 2019-01-23 18:33 | NUR ---
PT RECIEVED A FULL BED CHANGE AND A CHLORAHEXADINE BATH. NEW [place]OWN PROVIDED FOR THE PT. [facility] POC.
--- NOTE | 2019-01-23 18:38 | MORECARE ---
CASE MANAGEMENT DISCHARGE SUMMARY PATIENT: JESSY JOHNSON UNIT: [id number] ADM DATE: 01/19/19 AGE: 78 : 40 SEX: F ROOM/BED: D.2306 AUTHOR: MAKAYLA MORRISON PHYSICIAN: REFERRING PHYSICIAN: ARMANDO IBRAHIM MD DATE OF SERVICE: 01/23/19 Discharge Plan Patient Name: JESSY JOHNSON [facility] [facility] 1940 Planned Disposition: Inpatient Rehab Anticipated Discharge Date: Discharge Date: Expected LOS: Initial Reviewer: [email or web address] Initial Review Date: 01/23/2019 Generated: 01/23/19 7:38 pm DCPIA - Discharge Planning Initial Assessment Updated by [email or web address]: Lamar Ragland on 01/23/19 6:34 pm * Is the patient Alert and Oriented? Yes * How many steps to enter\exit or inside your home? ramp * PCP [place] * Pharmacy [facility] * Preadmission Environment Home with Family * ADLs Partial Dependent * Partial ADLs (Assistance needed) Ambulation Bathing Dressing Eating Medication Management Toileting Transfers * Other Equipment WHEELCHAIR, WALKER,WALKER WITH WHEELS * List name and contact numbers for known caregivers / representatives who currently or will assist patient after discharge: NANCY WILSON - DAUGHTER- [phone] * Verbal permission to speak to the caregivers and representatives has been obtained from the patient. N/A * Community resources currently utilized None * Please name any agencies selected above. HD @ [facility] * Additional services required to return to the preadmission environment? No * Can the patient safely return to the preadmission environment? Yes * Has this patient been hospitalized within the prior 30 days at any hospital? No Last DP export: 01/23/19 5:31 pm Patient Name: JESSY JOHNSON Page [phone] at 1838 All edits/amendments must be made on the electronic document DICTATION DATE: 01/23/191837 DEPUTY CLERK: JUSTYNA 01/23/191837 RPT#: [id number] DC DATE: STATUS: ADM IN [place] [id number] [place] [address] END OF REPORT
--- NOTE | 2019-01-23 18:52 | MORECARE ---
CASE MANAGEMENT DISCHARGE SUMMARY PATIENT: JESSY JOHNSON UNIT: [id number] ADM DATE: 01/19/19 AGE: 78 : 40 SEX: F ROOM/BED: D.2306 AUTHOR: TAMIKO,DOC PHYSICIAN: REFERRING PHYSICIAN: ARMANDO IBRAHIM MD DATE OF SERVICE: 01/23/19 Discharge Plan Patient Name: JESSY JOHNSON Facility: [facility]:[place] : 1940 Planned Disposition: Inpatient Rehab Anticipated Discharge Date: Discharge Date: Expected LOS: Initial Reviewer: [email or web address] Initial Review Date: 01/23/2019 Generated: 01/23/19 7:52 pm Comments DCP- Discharge Planning Updated by [email or web address]: Lamar Ragland on 01/23/19 5:[address] Patient Name: JESSY JOHNSON Admission Status: ER Accout number: [id number] Admission Date: 01-19-2019 : 1940 Admission Diagnosis: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 Patient is currently on vent. Patient lives at home with 24 hr. family care. Daughters and family take turns staying with patient around the clock. The family would like for patient to go to inpatient rehab upon discharge to build strength. Patient has hemodialysis MWF @ [facility]. CM discussed availability / needs of home health and medical equipment. Family denies any discharge needs at this time. Patient will have family drive her home upon discharge. CM will continue to follow and assist as needed with discharge planning / needs. Dressage Instructor: Lamar Ragland DCPIA - Discharge Planning Initial Assessment Updated by [email or web address]: Lamar Ragland on 01/23/19 6:34 pm * Is the patient Alert and Oriented? Yes * How many steps to enter\exit or inside your home? ramp * PCP [place] * Pharmacy [facility] * Preadmission Environment Home with Family * ADLs Partial Dependent * Partial ADLs (Assistance needed) Ambulation Bathing Dressing Eating Medication Management Toileting Transfers * Other Equipment WHEELCHAIR, WALKER,WALKER WITH WHEELS * List name and contact numbers for known caregivers / representatives who currently or will assist patient after discharge: NANCY WILSON - DAUGHTER- [phone] * Verbal permission to speak to the caregivers and representatives has been obtained from the patient. N/A * Community resources currently utilized None * Please name any agencies selected above. HD @ [facility] * Additional services required to return to the preadmission environment? No * Can the patient safely return to the preadmission environment? Yes * Has this patient been hospitalized within the prior 30 days at any hospital? No Last DP export: 01/23/19 5:38 pm Patient Name: JESSY JOHNSON Page [id number] at 1852 All edits/amendments must be made on the electronic document DICTATION DATE: 01/23/191851 MANAGER LANGUAGE: JUSTYNA 01/23/191851 RPT#: [id number] DC DATE: STATUS: ADM IN [facility] [address] [place] [address] END OF REPORT
--- NOTE | 2019-01-23 19:05 | NUR ---
Received patient resting in bed with eyes closed, assessment completed per shereen. Patient opens eyes to voice/withdraws from noxious stimuli, does not follow commands. NGT R nare, ETT 7.5 @ 23cm secured. S1/S2 noted NSR on telemetry, rythmic and regular. Vent settings SIMV R-8 V-500 25% P-5 PS-10 with O2 sat 98%, lung sounds clear bilateral upper and mid with diminished lower. R lower abdomen incision dressing CDI, L groin incision dressing CDI. R groin CVL dressing CDI, small bruising noted. Upper pulses weak palpable with lower pulses doppler, skin cool/dry. Oral care/suctioning provided, repositioned for comfort. No further needs at this time, see flowsheet for details. All VSS and will continue to monitor.
--- NOTE | 2019-01-23 21:40 | NUR ---
Patient Sinus Tach on telemetry with HR 135, symptomatic with BP decreased to 77/43. Episode lasted approx 2-3 min with patient returning to NSR with HR 79. Will continue to monitor.
--- NOTE | 2019-01-23 23:00 | NUR ---
Reassessment completed per flowsheet, patient opens eyes to voice does not follow commands. S1/S2 noted NSR on telemetry, rythmic and regular. Vent settigns unchanged from previous with O2 sat 100%, lung sounds clear bilateral upper and mid with diminished lower. Upper pulses weak with lower pulses doppler, skin cool/dry. Oral care/suctioning provided, repositioned for comfort. See flowsheet for details, will continue to monitor.
--- NOTE | 2019-01-23 23:10 | NUR ---
Patient Sinus Tach on telemetry with HR 150, regular. EKG obtained, Nephrology on-call paged. Patient returned to NSR after approx 2-3 min with HR 81, regular. Will continue to monitor.
--- NOTE | 2019-01-23 23:20 | NUR ---
Spoke to Dr Syed, updated on current condition with new orders received. Metoprolol 25mg Q6 ordered, restart Digoxin 0.125mg, STAT Troponin ordered. Will notify physician of results, continue to monitor.
[2019-01-24] VITALS (23 sets, daily range): BP systolic 75–125; BP diastolic 53–73
--- NOTE | 2019-01-24 01:10 | NUR ---
Troponin resulted, called Dr Elizabeth to notify of results. Requested to paged Cardiology and make aware of changes, paged cardiology on-call. Dr elizabeth to be notified with cardiology decision.
--- NOTE | 2019-01-24 01:20 | NUR ---
Spoke to Dr Robles, updated on current status and rythym changes. Dr Robles to review EKG and will notify RN of new orders if needed.
--- NOTE | 2019-01-24 03:00 | NUR ---
Reassessment completed per flowsheet, no changes noted from previous assessment. S1/S2 noted NSR on telemetry, rythmic and regular. Vent settings unchanged from previous with O2 sat 100%, lung sounds clear bilateral upper and mid with diminished lower. Upper pulses weak with lower pulses doppler, skin cool/dry. R great toe with necrotic tissue, L great toe discoloration. Oral care/suctioning provided, repositioned for comfort. See flowsheet for details, all VSS and will continue to monitor.
[2019-01-24 05:25] LABS: BASOPHILS 0 % (0-2); EOSINOPHILS 0.6 % (0-7); HEMATOCRIT 30.1 % (36.0-48.0); HEMOGLOBIN 10.1 g/dL (12-16); IMMATURE GRANULOCYTES 0.7 % (0-5); LYMPHOCYTES 3.6 % (15-50); MCH 31.4 pg (26.0-34.0); MCHC 33.6 g/dL (31.0-37.0); MCV 93.5 fL (80.0-100.0); MEAN PLATELET VOLUME 11.6 fL (7.4-10.4); MONOCYTES 6.3 % (2-11); NEUTROPHILS 88.8 % (40-80); RBC 3.22 10x6/uL (4.00-5.40); RDW 19.5 % (11.5-14.5); WBC 23.5 10x3/uL (4.8-10.8)
[2019-01-24 05:26] LABS: PLATELET COUNT 49 10x3/uL (130-400)
[2019-01-24 05:37] LABS: ANION GAP 15.1 mmol/L (8-16); CALCIUM 8.9 mg/dL (8.5-10.1); CARBON DIOXIDE 27.4 mmol/L (21.0-32.0)
[2019-01-24 05:43] LABS: CREATININE - SERUM 3.5 mg/dL (0.6-1.3); PHOSPHOROUS 7.1 mg/dL (2.5-4.9); POTASSIUM - SERUM 3.5 mmol/L (3.5-5.1)
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
--- NOTE | 2019-01-24 09:05 | NUR ---
Nutrition follow-up: Pt intubated; sedation off x 24 hours Nepro was started via NGT; however, TF off now 2/2 possible extubation Labs reviewed Wt: 135# +BM, liquid If pt unable to extubate, recommend restarting Nepro @ 20 ml/hr with increase to goal rate of 40 ml/hr. RDN following.
--- NOTE | 2019-01-24 17:12 | NUR ---
1100 TOLELRATING WEANING TRIAL WELL
--- NOTE | 2019-01-24 17:13 | NUR ---
1300 LARGE LIQUID BM NOTED RESTAETED TUBE FEEDING AT 30
--- NOTE | 2019-01-24 17:13 | NUR ---
1215 EXTUBATED TOLERATING WELL PLACED ON 3L/NC
--- NOTE | 2019-01-24 17:15 | NUR ---
1500 02 REDUCED TO 2L/NC 02 SAT 97-98%
--- NOTE | 2019-01-24 19:00 | NUR ---
SHIFT ASSESSMENT COMPLETE. PT IS ABLE TO FOLLOW COMMANDS, BUT HER SPEECH IS GARBLED. POOR DENTITION NOTED, DRY MUCOUS MEMBRANES, ORAL CARE PROVIDED. NC ON @ 2L/MIN. S1S2 AUDIBLE, HR 103 NSR SHOWING ON MONITOR. EXP WHEEZES AND RONCHI HEARD BILAT THROUGHOUT ALL LOBES. ABD FLAT AND SOFT, BS HYPERACTIVE X4. GENERALIZED BRUSING IN ALL EXT AND ESPINOZA AREA. R HIP SKIN TEAR OPEN TO AIR, NO DRAINAGE NOTED. R LOWER QUAD SKIN TEAR OPEN TO AIR. R GREAT TOE BLACK, THICK. WEAK RADIAL AND PEDAL PULSES. R FEMORAL CVL INFUSING D10 @ 20 ML/HR. PARTIAL LINEN CHANGE PROVIDED, LARGE WATERY STOOL NOTED, BROWN IN COLOR. BARRIER CREAM APPLIED TO BUTTOCKS, SKIN TEAR NOTED ON BUTTOCKS. L ARM RESERVE SIGNS POSTED ON DOOR AND AT HOB. L UPPER ARM FISTULA PRESENT WITH BRUIT AND THRILL. VSS. WILL CONT CLOSE MONITORING IN ICU.
--- NOTE | 2019-01-24 19:38 | NUR ---
[address] MILLAN OF TROPONIN LEVELS. NO NEW ORDERS NOTED
--- NOTE | 2019-01-24 21:00 | NUR ---
SON AT BEDSIDE. UPDATED ON PT CONDITION. NO FURTHER NEEDS AT THIS TIME. REPOSITIONED FOR COMFORT. VSS. WILL CONT WITH POC.
--- NOTE | 2019-01-24 22:45 | NUR ---
CVL DRESSING CHANGE VIA RESIDENTIAL CARE OFFICER.
--- NOTE | 2019-01-24 23:00 | NUR ---
REASSESSMENT COMPLETE. LARGE LIQUID STOOL. PT BLEEDING FROM ABD PUNCTURE SITE, DRESSED WITH 4X4 AND TAPE. DRESSED R LEG BLISTER WITH ADAPTIC AND 4X4. BARRIER CREAM APPLIED TO BUTTOCKS. REPOSITIONED FOR COMFORT. PT IS ABLE TO FOLLOW COMMANDS, BUT HER SPEECH IS GARBLED. HR INCREASING WHILE BP DECREASED. BP IS WNL BUT TRENDING DOWN, WILL CONT TO MONITOR CLOSELY.
[2019-01-25] VITALS (40 sets, daily range): BP systolic 79–148; BP diastolic 55–91
--- NOTE | 2019-01-25 00:33 | NUR ---
PAGEChong STAPLES D/T LEEANN BP.
--- NOTE | 2019-01-25 01:00 | NUR ---
DR. STAPLES ANSWERED PAGE. 500 CC BOLUS NS ORDERED. INITIATING NOW.
[2019-01-25 01:55] LABS: HEMATOCRIT 30.1 % (36.0-48.0); HEMOGLOBIN 9.9 g/dL (12-16)
--- NOTE | 2019-01-25 04:00 | NUR ---
FSBS 48, INTIATING HYPOGLYCEMIC PROTOCOL. WILL RECHECK FSBS IN 15 MIN.
--- NOTE | 2019-01-25 04:15 | NUR ---
FSBS 174.
--- NOTE | 2019-01-25 05:23 | NUR ---
PT RESTING PEACEFULLY. CHG BATH AND COMPLETE LINEN CHANGE PROVIDED. PT TOLERATED WELL. REDRESSED R LEG SKIN TEAR.
--- NOTE | 2019-01-25 07:00 | NUR ---
DAUGHTER AT BEDSIDE. SHE IS UPSET THIS MORNING, REFUSED AM LAB D/T PT ANXIETY AND CALLING CLOSE FAMILY FOR A FAMILY MEETING WITH DR. STAPLES. NOTIFIED DR. STAPLES OF FAMILY'S WISHES. NEW ORDERS RECIEVED AND PASSED ON TO AM NURSE.
--- NOTE | 2019-01-25 10:02 | NUR ---
0700 DAUGHTER AT BEDSIDE EMOTIONAL SUPPORT PROVIDED ASSESSMENT COMPLETE LIQUID BM NOTED BUTT PASTE APPLIED TO BUTTOCKS
--- NOTE | 2019-01-25 10:04 | NUR ---
0800 RENAL MAINTENANCE CHIEF, ADRIAN, SPEAKING WITH DAUGHTER NEW ORDERS NOTED
[2019-01-25 11:41] LABS: HEMATOCRIT 29.5 % (36.0-48.0); HEMOGLOBIN 9.9 g/dL (12-16); MCH 31.3 pg (26.0-34.0); MCHC 33.6 g/dL (31.0-37.0); MCV 93.4 fL (80.0-100.0); MEAN PLATELET VOLUME 12.2 fL (7.4-10.4); PLATELET COUNT 54 10x3/uL (130-400); RBC 3.16 10x6/uL (4.00-5.40); RDW 18.5 % (11.5-14.5); WBC 25.4 10x3/uL (4.8-10.8)
[2019-01-25 11:57] LABS: ANION GAP 18.9 mmol/L (8-16); CALCIUM 8.1 mg/dL (8.5-10.1); CARBON DIOXIDE 21.7 mmol/L (21.0-32.0); CREATININE - SERUM 4.1 mg/dL (0.6-1.3); PHOSPHOROUS 7.4 mg/dL (2.5-4.9); POTASSIUM - SERUM 3.6 mmol/L (3.5-5.1); VANCOMYCIN - RANDOM 41.5 ug/mL (10.0-20.0)
[2019-01-25 12:40] LABS: LYMPHOCYTES 4 % (15-50); MONOCYTES 6 % (2-11); NEUTROPHILS 87 % (40-80); PLATELET ESTIMATE DECREASED; PLATELET MORPHOLOGY GIANT PLTS PRESENT
--- NOTE | 2019-01-25 12:53 | NUR ---
1033 STARTED LEVOPHED AT 5MCG/MIN
--- NOTE | 2019-01-25 12:58 | NUR ---
1135 DR STAPLES AT BEDSIDE SPEAKING WITH FAMILY FAMILY DOES NOT WANT INTERVENTION IF PATIENT CODES BUT DOES WANT CONTINUE OF CARE AND ONLY WANTS INTUBATION IF PATIENT IS IN SURGERY.
--- NOTE | 2019-01-25 13:01 | NUR ---
[address] MILLAN OF HEART RATE 135 AND INTRODUCTION OF LEVOPHED. STATED TO CONT LEVOPHED BUT ORDERED EXTRA DOSE OF DIGOXIN .125 IV
--- NOTE | 2019-01-25 18:38 | NUR ---
1400 DIALYSIS ONGOING WITHOUT COMPLICATIONS
--- NOTE | 2019-01-25 18:38 | NUR ---
1600 LARGE LIQUID BM NOTED
--- NOTE | 2019-01-25 18:39 | NUR ---
1700 CHANGED DRESSING RIGHT GROIN CVL USING STERIL TECHNIQUE. CHANGED DDRESSING TO RIGHT INNER THIGT BLISTER AND ABDOMINAL SITE
--- NOTE | 2019-01-25 19:00 | NUR ---
SHIFT ASSESSMENT COMPLETE. PT IS CONFUSED/DISORIENTED TO PLACE, TIME AND SITUATION. REORIENTED. PERRLA, 3 MM, BRISK REACTION TO LIGHT. MUCOUS MEMBRANES MOIST, POOR DENTITION NOTED, ORAL CARE PROVIDED. S1S2 AUDIBLE, HR 84 BPM, NSR SHOWING ON MONITOR. RR SHALLOW, CRACKLES HEARD BILAT THROUGHOUT ALL LOBES. NC ON @ 2 L/MIN. RLQ IR PUNCTURE SITE DRESSING CDI. R GROIN CVL INFUSING D10 @ 20 ML/HR. R LEG BLISTER DRESSING CDI. R GREAT TOE IS NECROTIC. PEDAL PULSES WEAK. L TOES CYANOTIC. BRUSING NOTED TO PLEVIS, ABD, LABIA, BUE AND GROIN AREA. PARTIAL LINEN CHANGE PROVIDED. BARRIER CREAM APPLIED TO BUTTOCKS. SKIN TEAR NOTED ON COCCYX. REPOSITIONED FOR COMFORT. VSS. CALL LIGHT IN REACH, WILL CONT TO MONITOR CLOSELY. TIGHT PARAMETERS SET ON ICU MONITORS.
--- NOTE | 2019-01-25 21:00 | NUR ---
FAMILY AT BEDSIDE. PT IS ANXIOUS, REPOSITIONED FOR COMFORT. SHE STATED THAT SHE IS HAVING PAIN IN HER BACK. PRN TYLENOL ADMIN VIA NGT. VSS. NO FURTHER NEEDS AT THIS TIME.
--- NOTE | 2019-01-25 23:00 | NUR ---
REASSESSMENT COMPLETE. REDRESSED IR PUNCTURE SITE WITH 4X4 AND MEPILEX DRESSING. PT HAD LARGE MUCOUS LIKE STOOL. PARTIAL LINEN CHANGE PROVIDED. BARRIER CREAM APPLIED TO BUTTOCKS. NO FURTHER CHANGES IN PT CONDITION. VSS. WILL CONT CLOSE MONITORING IN ICU.
[2019-01-26] VITALS (24 sets, daily range): BP systolic 84–144; BP diastolic 55–82
--- NOTE | 2019-01-26 01:00 | NUR ---
PT RESTING PEACEFULLY WITH NO SIGNS OF ACUTE DITRESS NOTED. VSS. CALL LIGHT IN REACH, WILL CONT WITH POC.
--- NOTE | 2019-01-26 01:00 | NUR ---
MEDICATED WITH HER SCHEDULED FROM 0000 DOSE OF TRAMADOL
--- NOTE | 2019-01-26 03:00 | NUR ---
REASSESSMENT COMPLETE. NO CHANGES IN PT CONDITION. VSS. SEE FLOWSHEET FOR FURTHER DETIALS. CALL LIGHT IN REACH, BED IN LOWEST POSITION. WILL CONT WITH POC.
--- NOTE | 2019-01-26 05:00 | NUR ---
CVL DRESSING CHANGE VIA MARKING DEVICES ASSEMBLER. RLQ AND R UPPER THIGH DRESSING CHANGED. IV TUBING AND TF BAG CHANGED, DATED AND LABELED. CHG BATH AND COMPLETE LINEN CHANGE PROVIDED. VSS. PT TOLERATED WELL.
--- NOTE | 2019-01-26 06:00 | NUR ---
RT KALLIE ERICKSON WOULDN'T DRAW FOR AM LAB. LAB CALLED TO INFORM THEM OF THE CHANGE. THEY STATED THAT THEY WOULD BE SENDING SOMEONE TO DRAW LAB.
--- NOTE | 2019-01-26 06:15 | NUR ---
DAUGHTER AT BEDSIDE. UPDATE PROVIDED. NO FURTHER NEEDS AT THIS TIME. WILL CONT WITH POC.
--- NOTE | 2019-01-26 07:15 | NUR ---
OPENS EYES TO VERBAL STIMULI MAKES EYE CONTACT. OBEYS COMMANDS ON REQUEST. MOANS BUT DENIES PAIN. REPOSITIONED FOR COMFORT. RIGHT FROIN CENTRAL LINE TRIPLE LUMEN DRESSING DRY AND INTACT. DRESSING ON LOWER ABD WITH SOME RED DRAINAGE. FINGER TIPS AND LEFT GREAT TOE PURPLE. RIGHT GREAT TOE BLACK AND PURPLE.LEWIS COLOR. PULSE OX 98% ON 2 LITERS NC. BRUISING NOTED ON ABD LEGS AND ARMS. MONITOR SR. D10 W INFUSING AT 20 ML HOUR. HEAD OF BED ELEVATED 30 DEGREES. NG TUBE INFUSING WITH PULMOCARE AT 40 ML HOUR. NO COMPLAINT OF NAUSEA. FIRST STEP MATTRESS ORDERED FOR BED.
--- NOTE | 2019-01-26 08:00 | NUR ---
DAUGHTER HERE UPDATE GIVEN. LAB HERE NO VEINS FOUND WITH VEIN FINDER. ATTEMPTED TO DRAW FROM RIGHT FEMEROL CENTRAL LINE FLUSHED WITH 20 ML NS FLUSHES WITHOUT DIFFICULTY BROWN PORT. WHITE PORT DIFFICULTY TO FLUSH. UNABLE TO DRAW ANY BLOOD FROM CENTRAL LINE. DAUGHTER STATES SHE DOES NOT WANT TO STICK PATIENT FOR LAB THEY CAN DRAW IT TOMORROW WHEN PATIENT IS ON DIALYSIS. INFORMED WE WOULD DISCUSS WITH PHYSICANS.
--- NOTE | 2019-01-26 09:00 | NUR ---
NO CHANGES COUGHING OCC UNPRODUCTIVE. MINIMAL RESIDUAL ON TUBE FEEDING. HEEL PROTECTORS ON FEET. HEELS LOWER LEGS ELEVATED OFF BED WITH PILLOWS
--- NOTE | 2019-01-26 10:42 | NUR ---
DR. PEOPLES HERE UPDATE GIVEN. ABD DRESSING CHANGED. SATURATED IN RED DRAINAGE. BOX 4X4 COVER WITH ABD PAD SECURE WITH TAPE. PATIENT TOLERATED POORLY. MORPHINE 1-2 MG IV Q 6 PRN ORDER FOR COMFORT
--- NOTE | 2019-01-26 11:30 | NUR ---
DR. Hyatt HERE STATES ITS OK NOT TO DRAW LAB TODAY, CAN DO TOMORROW WITH DIALYSIS. UPDATE ON PATIENT CONDITION GIVEN
--- NOTE | 2019-01-26 13:00 | NUR ---
FIRST STEP AIRMATTRESS APPLIED TO BED. COCCYX AREA EXCORATION NOTED. WITH BLEEDING. MEDIPLES APPLIED. SMALL LIQUID BROWN BM. ABD DRESSING DRY AND INTACT. PATIENT TOLERATES POORLY. WHEN LEFT ALONE REST WELL.
--- NOTE | 2019-01-26 15:00 | NUR ---
RESTING COMFORTABLY ON AIR MATTRESS. NO DISTRESS. COUGHING UNPRODUCTIVE OCC
--- NOTE | 2019-01-26 17:40 | NUR ---
DRESSINGS LOWER ABD DRY AND INTACT. TALKING WITH DAUGHTER. MORE COMFORTABLE, LESS MOANING WHEN REPOSITIONED. MONITOR SR WITH OCC PAC. RIGHT DRESSING WITH SMALL AMOUNT RED DRAINAGE ON DISK.
--- NOTE | 2019-01-26 18:16 | NUR ---
PATIENT COMPLAINTED ON BEING ABLE TO BREATH, STATES SHE IS NOT GETTING ENOUGH AIR. PULSE OX 97%. REPOSITIONED UP IN BED. MORPHINE GIVEN INSTEAD OF ULTRAM FOR FAST RELIEF OF SHORTNESS OF BREATH. FAM ORDERED FOR ROOM. PATIENT RESTING COMFORTABLE NOW. DAUGHTER AT BEDSIDE.
--- NOTE | 2019-01-26 19:00 | NUR ---
REPORT RECEIVED PT AWAKE WITH DAUGHTER AT BEDSIDE SEE ASSESSMENT FLOWSHEET. ON NC O2 SAT 94% BUT ANXIOUS AND STATES CANT BREATHE. CM READING SR WILL CONTINUE TO MONITOR AND SEE ABOUT MEDS FOR ANXIETY
--- NOTE | 2019-01-26 20:00 | NUR ---
SPEAKING WITH DAUGHTER WORRIED ABOUT PTS ACNXIETY WILL TRY XANAX TO SEE IF IT WILL HELP WITH NERVES
--- NOTE | 2019-01-26 23:39 | NUR ---
REASSESSMENT MADE MEDICATED WITH MORPHINE PRN FOR PAIN WITH TURNING AFTER TURNING WITH JENNIFER GUTIERRES AFTER MOD LIQUID STOOL
[2019-01-27] VITALS (25 sets, daily range): BP systolic 93–135; BP diastolic 50–93
--- NOTE | 2019-01-27 01:00 | NUR ---
PT RESTING EYES CLOSED VSS AT THIS TIME CPOC WILL MONITOR
--- NOTE | 2019-01-27 03:00 | NUR ---
REASSESSMENT MADE SEE FLOWSHEET COMPLETE LINEN CHANGE AND BATH PT HAD MODERATE LIQUID BROWN STOOL
[2019-01-27 04:47] LABS: BASOPHILS 0 % (0-2); EOSINOPHILS 0.7 % (0-7); HEMOGLOBIN 9.9 g/dL (12-16); IMMATURE GRANULOCYTES 0.7 % (0-5); MCH 31.1 pg (26.0-34.0); MCV 94.3 fL (80.0-100.0); MEAN PLATELET VOLUME 12.2 fL (7.4-10.4); MONOCYTES 8.6 % (2-11); PLATELET COUNT 74 10x3/uL (130-400); RBC 3.18 10x6/uL (4.00-5.40); RDW 17.5 % (11.5-14.5); WBC 22.3 10x3/uL (4.8-10.8)
[2019-01-27 04:56] LABS: INR 1.16 (0.85-1.17); PROTIME 14.3 SECONDS (11.6-15.0)
[2019-01-27 04:57] LABS: APTT 41.3 SECONDS (22.8-39.4)
--- NOTE | 2019-01-27 05:00 | NUR ---
STOOL PARTIAL BATH LINEN CHANGE MEPILEX INTACT TO BOTTOM REPOSITIONED FOR COMFORT
[2019-01-27 05:04] LABS: ALBUMIN 1.9 g/dL (3.4-5.0); ANION GAP 15.2 mmol/L (8-16); BILIRUBIN - TOTAL 0.62 mg/dL (0.2-1.3); CALCIUM 8.8 mg/dL (8.5-10.1); CARBON DIOXIDE 25.3 mmol/L (21.0-32.0); CREATININE - SERUM 3.7 mg/dL (0.6-1.3); D-DIMER-QUANTITATIVE 4.99 ug/mLFEU (0.20-0.54); DIGOXIN 1.1 ng/mL (0.90-2.00); MAGNESIUM - SERUM 2.1 mg/dL (1.8-2.4); PHOSPHOROUS 7.3 mg/dL (2.5-4.9); POTASSIUM - SERUM 3.5 mmol/L (3.5-5.1); PROTEIN - SERUM 5.8 g/dL (6.4-8.2)
--- NOTE | 2019-01-27 07:00 | NUR ---
SHIFT ASSESSMENT COMPLETED. PT CARE ASSUMED, MONITORS ON AND WORKING, VITALS STABLE, NO SIGNS/SYMPTOMS OF PAIN OR DISCOMFORT NOTED AT THIS TIME, SEE FLOW SHEET FOR FURTHER DETIALS. WILL CONTINUE TO OBSERVE.
--- NOTE | 2019-01-27 09:00 | NUR ---
PT TURNED AND REPOSITIONED FOR COMFORT, FAMILY AT BEDSIDE, UPDATE PROVIDED, NO SIGNS/SYMPTOMS OF PAIN OR DISCOMFORT NOTED. WILL CONTINUE TO OBSERVE.
--- NOTE | 2019-01-27 09:47 | NUR ---
Nutrition follow-up: Pt extubated Nepro infusing @ 40 ml/hr via NGT Labs reviewed WT: 162# +BM RDN following.
--- NOTE | 2019-01-27 11:00 | NUR ---
HD NURSE AT BEDSIDE, PT TOLERATING HD WELL. MONITORS ON AND WORKING, VITALS STABLE. SEE FLOW SHEET FOR FURTHER DETIALS. WILL CONTINUE TO OBSERVE.
--- NOTE | 2019-01-27 13:00 | NUR ---
PT TURNED AND REPOSITIONED FOR COMFORT, PT CLEANED FROM LARGE BM, MONITORS ON AND WORKING, VITALS STABLE, WILL CONTINUE TO OBSERVE.
--- NOTE | 2019-01-27 14:46 | NUR ---
PT TX COMPLETE. HAD TO DROP UF GOAL THEN STOP PT B/P DROPPED AND HR ELEVATED. PT RESTED FOR THE MOST PART, FAMILY AT BEDSIDE TO VISIT. 200CC NS BOLUS. TOTAL OF 1226ML OFF.
--- NOTE | 2019-01-27 15:00 | NUR ---
PT TURNED AND REPOSITIONED FOR COMFORT, CLEANED OF LARGE BM FAMILY AT BEDSIDE, UPDATE PROVIDED. MONITORS ON AND WORKING, VITALS STABLE. SEE FLOW SHEET FOR FURTHER DETIALS, WILL CONTINUE TO OBSERVE.
--- NOTE | 2019-01-27 17:00 | NUR ---
PT RESTING, VITALS STABLE, WILL CONTINUE TO OBSERVE.
--- NOTE | 2019-01-27 19:20 | NUR ---
Received patient resting in bed with eyes closed, assessment completed per flowsheet. Patient disoriented to time/place/situation, follows instructions weakly. NGT R nare, Nepro @ 40ml/hr. S1/S2 noted NSR on telemetry with HR 86, rythmic and regular. Breathing is shallow on room air with O2 sat 93%, rhonchi noted bilateral upper with diminished mid and lower. Abdomen is round/soft with bowel sounds active x4, non-tender. Bruising noted abominal/bilateral groin, R groin CVl dressing CDI. Weakness noted all extremities with upper pulses palpable and lower pulses weak, skin cool/dry. Denies pain or other needs at this time, see flowsheet for details. All VSS and will continue to monitor.
--- NOTE | 2019-01-27 21:00 | NUR ---
HS meds given, OT at bedside for swallow eval. Patient kept NPO with NGT feeding, swallow eval reevaluate in AM. Repositioned for comfort, no further needs and will continue to monitor.
--- NOTE | 2019-01-27 23:00 | NUR ---
Reassessment completed per flowsheet, no changes noted from previous assessment. S1/S2 noted NSR on telemetry with HR 84, rythmic and regular. Breathing is shallow on room air with o2 sat 92%, crackles noted bilateral upper with crackles/diminished mid and diminished lower. Upper pulses palpable with lower pulses weak/doppler, skin cool/dry. Denies pain or other needs, repositioned for comfort. See flowsheet for details, all VSS and will continue to monitor.
[2019-01-28] VITALS (24 sets, daily range): BP systolic 118–153; BP diastolic 63–134; Ht 160 cm; Wt 70.5 kg
--- NOTE | 2019-01-28 01:00 | NUR ---
Patient sleeping in bed with eyes closed, no s/s of distress at this time. Full Bed bath/linen change performed, tolerated well. No further needs and will continue to monitor.
--- NOTE | 2019-01-28 02:45 | NUR ---
Reassessment completed per flowsheet, no changes noted from previous assessment. S1/S2 noted NSR on telemetry with HR 88, rythmic and regular. Breathing is shallow on room air with O2 sat 92%, crackles noted bilateral upper with crackles/diminished mid and diminished lower. Weak non-productive cough noted, poor attempt. Upper pulses palpable with lower pulses doppler, skin cool/dry. Repositioned for comfort, no further needs at this time. See flowsheet for details, all VSS and will continue to monitor.
--- NOTE | 2019-01-28 05:00 | NUR ---
Patient laying in bed with eyes open, no s/s of distress at this time. Patient speech garbled, disoriented to time/place/situation with limited success reorienting. Incontinent of bowel in bed, liquid brown stool cleaned with linen change performed. No further needs at this time, will continue to monitor.
--- NOTE | 2019-01-28 08:13 | NUR ---
PT WITH NO COMPLAINTS OF PAIN. RIGHT FINGERS AND ARM DISCOLORED FROM BRUISES. NG TUBE IN PLACE WITH FEEDING BEING DELIVERED AT 40 ML/HR. RT GROIN CVL PATENT WITH D10 AT 10 ML/HR BEING DELIVERED. FSBS CHECKED 190 WAS OBTAINED NO COVERAGE NEEDED AT THIS TIME. PATIENT CONFUSED WITH SLURRED SPEECH THIS AM. ORAL CARE PROVIED AT THIS TIME.
--- NOTE | 2019-01-28 10:07 | NUR ---
PATIENT IN BED AWAKE AND CONFUSED. FAMILY AT BEDSIDE. IV PATENT AND INFUSING. PATIENT WITH NO COMPLAINTS OF PAIN DENIES NEEDS AT THIS TIME. LAB IN ROOM ALONG WITH RESPIRATORY. VITALS STABLE.
[2019-01-28 10:40] LABS: ANION GAP 17.1 mmol/L (8-16); CALCIUM 9.2 mg/dL (8.5-10.1); CARBON DIOXIDE 22.8 mmol/L (21.0-32.0)
[2019-01-28 10:42] LABS: CREATININE - SERUM 2.7 mg/dL (0.6-1.3); POTASSIUM - SERUM 3.9 mmol/L (3.5-5.1)
--- NOTE | 2019-01-28 13:20 | NUR ---
CONSULT SURGERY FOR A NEW CVL. ORAL CARE PROVIDED. LAB IN ROOM WITH PATIENT ALONG WITH FAMILY. PATIENT DENIES PAIN AND ANY OTHER NEEDS AT THIS TIME.
--- NOTE | 2019-01-28 14:27 | NUR ---
PATIENT RESTING QUIETLY. DENIES PAIN AND ANY OTHER NEEDS AT THIS TIME. VITALS STABLE. CVL STILL LEAKING AROUND INSERTION SITE. WAITING FOR SURGERY TO ASSESS CVL PLACEMENT.
[2019-01-28 14:28] LABS: BASOPHILS 0.2 % (0-2); EOSINOPHILS 0.5 % (0-7); HEMATOCRIT 31.2 % (36.0-48.0); HEMOGLOBIN 10.1 g/dL (12-16); IMMATURE GRANULOCYTES 0.9 % (0-5); LYMPHOCYTES 6.7 % (15-50); MCH 31.2 pg (26.0-34.0); MCHC 32.4 g/dL (31.0-37.0); MEAN PLATELET VOLUME 12.6 fL (7.4-10.4); MONOCYTES 13.7 % (2-11); RBC 3.24 10x6/uL (4.00-5.40); RDW 18.2 % (11.5-14.5)
[2019-01-28 14:39] LABS: MCV 96.3 fL (80.0-100.0); PLATELET COUNT 92 10x3/uL (130-400); WBC 12.8 10x3/uL (4.8-10.8)
--- NOTE | 2019-01-28 16:56 | NUR ---
PT RESTING QUIETLY IN BED. FAMILY AT BEDSIDE. DENIES NEEDS AT THIS TIME.
--- NOTE | 2019-01-28 18:23 | NUR ---
PATIENT RESTING. QUIETLY VITALS STABLE. PATIENT DENIES ANY NEEDS AT THIS TIME. SWALLOW CAME INTO DO A STUDY PATIENT WAS UNABLE TO FOLLOW DIRECTIONS AT THIS TIME.
--- NOTE | 2019-01-28 19:00 | NUR ---
REPORT RECEIVED. RECEIVED PATIENT IN BED, RESTING WITH EYES CLOSED. ROUSES EASILY AND ALERT. ORIENTED TO SELF ONLY. SHIFT ASSESSMENT COMPLETED PER FLOW SHEET WITH NO ACUTE DISTRESS OBSERVED. MONITORS CONNECTED TO PATIENT WITH ALARMS SET. VSS
--- NOTE | 2019-01-28 21:00 | NUR ---
RESTING WITH EYES CLOSED. ROUSES EASILY. VSS
--- NOTE | 2019-01-28 23:00 | NUR ---
REASSESSMENT COMPLETED PER FLOW SHEET WITH NO ACUTE DISTRESS OBSERVED. VSS
[2019-01-29] VITALS (12 sets, daily range): BP systolic 134–153; BP diastolic 56–92
--- NOTE | 2019-01-29 01:00 | NUR ---
RESTING WITH EYES CLOSED. ROUSES EASILY. VSS
--- NOTE | 2019-01-29 03:00 | NUR ---
REASSESSMENT COMPLETED PER FLOW SHEET WITH NO CHANGES OR ACUTE DISTRESS OBSERVED. VSS
--- NOTE | 2019-01-29 05:00 | NUR ---
AWAKE AND ALERT. HAD LARGE INCONT STOOL. ESPINOZA CARE GIVEN. BED BATH GIVEN WITH LINENS CHANGED. ASHA WITHOUT DIFF. VSS
[2019-01-29 05:59] LABS: BASOPHILS 0.1 % (0-2); EOSINOPHILS 1.9 % (0-7); HEMATOCRIT 31.7 % (36.0-48.0); HEMOGLOBIN 9.8 g/dL (12-16); IMMATURE GRANULOCYTES 0.9 % (0-5); LYMPHOCYTES 7.9 % (15-50); MCH 30.4 pg (26.0-34.0); MCHC 30.9 g/dL (31.0-37.0); MEAN PLATELET VOLUME 12.3 fL (7.4-10.4); MONOCYTES 10.4 % (2-11); NEUTROPHILS 78.8 % (40-80); PLATELET COUNT 102 10x3/uL (130-400); RBC 3.22 10x6/uL (4.00-5.40); RDW 18.4 % (11.5-14.5); WBC 12.2 10x3/uL (4.8-10.8)
[2019-01-29 06:18] LABS: ANION GAP 11.6 mmol/L (8-16); CALCIUM 9.5 mg/dL (8.5-10.1); CARBON DIOXIDE 29.7 mmol/L (21.0-32.0); CREATININE - SERUM 3.5 mg/dL (0.6-1.3); POTASSIUM - SERUM 3.3 mmol/L (3.5-5.1); VANCOMYCIN - RANDOM 16.9 ug/mL (10.0-20.0)
[2019-01-29 06:19] LABS: MCV 98.4 fL (80.0-100.0)
--- NOTE | 2019-01-29 07:10 | NUR ---
REPORT RECIEVED, SHIFT ASSESMENT COMPLETE, PT IS CONFUSED LYING IN BED, ON 2L NC WITH 97% O2 SAT. ALL PPP, VSS, WILL CON'T TO MONITOR
--- NOTE | 2019-01-29 08:05 | NUR ---
DR. SOLITARIO AT BEDSIDE, UPDATE GIVEN
--- NOTE | 2019-01-29 09:50 | NUR ---
NUTRITION F/U CHART REVIEWED. PT WITH FAMILY AT BEDSIDE. CONTINUES NEPRO @ 40 CC/HR. WILL CONTINUE TO PROVIDE NEPRO, MONITOR PT PROGRESS. RD FOLLOWING
--- NOTE | 2019-01-29 14:18 | NUR ---
RECEIVED PT FROM ICU VIA BED. FAMILY AT BEDSIDE. PT LYING SEMI FOWLERS. CALL LIGHT W/I REACH. NEPRO INFUSING @40ML/HR VIA NG TUBE. NO S/S OF DISTRESS NOTED. WILL CTM.
--- NOTE | 2019-01-29 15:33 | NUR ---
PT HAD BM. CLEANED AND PT AND APPLIED NEW LINEN. WAS UNINFORMED IN REPORT THAT PATIENT HAS SEVERE MASSIVE BRUISING THROUGHOUT HER ABDOMEN, BACK, AND THIGHS. ADMINISTERED 2MG MORPHINE PIV VIA LEFT GROIN CVL. PLACED MEPILEX TO COCCYX THAT WAS STAGE 2 AND BLEEDING. FAMILY AT BEDSIDE. WILL CTM.
--- NOTE | 2019-01-29 19:30 | NUR ---
PT ASLEEP, RESP EVEN AND UNLABORED. FAMILY AT BEDSIDE. PT HAS NO S/S OF DISTRESS. 2L O2 NC. NEPRO INFUSING AT 40 THROUGH NGT. 1ST STEP OVERLAY BED NOTED. BED LOW AND CALL LIGHT IN REACH. NAME AND DATE PLACED ON BOARD. WILL CPOC
[2019-01-30] VITALS: BP 139/51
--- NOTE | 2019-01-30 00:14 | NUR ---
PT RESTING IN BED. RESTLESS AND EXPRESSING PAIN. FSBS IS 238 2 UNITS GIVEN ORDERED. MORPHINE GIVEN FOR PAIN WITH SCHEDULED TRAMADOL. PT REFUSING ORAL CARE. WILL CONTINUE TO ATTEMPT. SON AT BED SIDE. REPOSITIONED PT, PT RIGHT HAND HAS STOOL UNDER NAILS. CLEANED HANDS AND WIPED PT CLEAN. PT PUSHING AWAY AND PULLING AT TUBES AND WIRES. SON AT BEDSIDE ASSISTING WITH KEEPING PT FROM PULLING NGT. PT HAS NO S/S OF DISTRESS. 2L O2 NC. NEPRO INFUSING AT 40 PLACEMENT CHECKED, 1ST STEP OVERLAY NOTED. WILL CPOC
--- NOTE | 2019-01-30 06:46 | NUR ---
FSBS IS 270 4 UNITS GIVEN ORDERED. PT CLEANED AND REPOSITIONED. PLACED A NEW MEPILEX ON BUTTOCK. PT HAS SEVERAL LARGE SORES THAT ARE BLEEDING WELL ONE ON RIGHT INNER THIGH THAT IS SCABBED. BEEN KEEPING PT TURNED EVERY 2-4 HOURS. PT IS RESTLESS XANAX GIVEN. CHANGED KANGAROO PUMP TUBE FEEDING RATE SET AT 40, PT 2L O2 NC. PT ON LEFT SIDE AT THIS TIME. FAMILY AT BEDSIDE. WILL CPOC
--- NOTE | 2019-01-30 07:00 | NUR ---
PT RESTING IN BED, FAMILY AT BEDSIDE. NO DISTRESS NOTED AT THIS TIME, WILL CONT TO FOLLOW POC
[2019-01-30 07:04] VITALS: BP 166/58
[2019-01-30 07:51] LABS: ANION GAP 10.2 mmol/L (8-16); CALCIUM 9.4 mg/dL (8.5-10.1); CARBON DIOXIDE 30.5 mmol/L (21.0-32.0); CREATININE - SERUM 3.1 mg/dL (0.6-1.3); POTASSIUM - SERUM 3.7 mmol/L (3.5-5.1)
[2019-01-30 08:13] VITALS: BP 128/69
[2019-01-30 08:16] LABS: BASOPHILS 0.1 % (0-2); EOSINOPHILS 1.2 % (0-7); HEMATOCRIT 30.5 % (36.0-48.0); HEMOGLOBIN 9.6 g/dL (12-16); IMMATURE GRANULOCYTES 0.8 % (0-5); LYMPHOCYTES 6.9 % (15-50); MCH 31.2 pg (26.0-34.0); MCHC 31.5 g/dL (31.0-37.0); MEAN PLATELET VOLUME 12.5 fL (7.4-10.4); MONOCYTES 8.6 % (2-11); NEUTROPHILS 82.4 % (40-80); PLATELET COUNT 108 10x3/uL (130-400); RBC 3.08 10x6/uL (4.00-5.40); RDW 18.4 % (11.5-14.5); WBC 13.5 10x3/uL (4.8-10.8)
--- NOTE | 2019-01-30 11:00 | NUR ---
PT RESTING IN BED, FAMILY AT BEDSIDE, PT SEEMS RESTLESS. AUDIBLE WHEEZING NOTED. REQUEST RT TO GIVE AN ADDITIONAL BREATHING TREATMENT
--- NOTE | 2019-01-30 12:09 | NUR ---
WATER MAIN PIPE LAYER OFFERED TO TURN PT AND FAMILY WOULD NOT ALLOW PT TO BE TURNED BECAUSE THE PT "IS COMFORTABLE."
[2019-01-30 12:21] VITALS: BP 136/50
[2019-01-30 16:47] VITALS: BP 146/66
--- NOTE | 2019-01-30 21:50 | NUR ---
PT BACK FROM DIALYSIS.
[2019-01-31] VITALS: BP 149/118
--- NOTE | 2019-01-31 03:15 | NUR ---
REST QUIETLY IN BED. EYE CLOSE.
--- NOTE | 2019-01-31 06:15 | NUR ---
I have reviewed this patient and I concur with the Shift Assessment completed by the Licensed Practical Nurse today this shift.
--- NOTE | 2019-01-31 06:27 | NUR ---
PT HAS BIG AMOUNT OF YELLOW SOFT BOWEL. CLEAN [place] AREA AND CHANGE GOWN AND LINEN.
--- NOTE | 2019-01-31 07:34 | NUR ---
ROUNDING DONE WITH PATIENT DAUGHTER AT [facility]. RIGHT NARE SEEN WITH NG FOR TUBE FEEDING PER KANGAROO PUMP. NEPHRO AT 40 CC/HR ALONG WITH WATER FLUSH AT 25 CC/HR. RES. LEFT ARM WITH AVF, + BRUIT AND THRILL. ON 2L PER NC. ON 1ST STEP OVERLAY MATTRESS. PATIENT IS DNR CODE STATUS. LARGE AMOUNT OF BRUISING SEEN TO ENTIRE GROIN UP TORSO. BILATEAL HEEL PROTECTORES ON. RIGHT GREAT TOE IS BLACK IN COLOR, BOTTOM OF LEFT GREAT TOE IS BRUISED. BILATEAL BRUISING SEEN TO ARMS. LEFT GROIN CVL SEEN PIV WITH SALINE LOCK. LAB DRAWN FOR THIS AM. ALL PORTS FLUSHED WITH NS.
--- NOTE | 2019-01-31 08:09 | NUR ---
WITH ASSISTANCE FROM SEWING DEPARTMENT SUPERVISOR AND EDGARDO MCDUFFIEKNITTING MACHINE OPERATOR HELPER. PATIENT IS TURNED TO RIGHT SIDE FOR COMFORT. MEPILEX IS REMOVED FROM BOTTOM. LARGE DEEP TISSUE INJURY SEEN ALONG WITH EXCORTAITON TO BOTTOM. BUTT PASTE APPLIED AT THIS TIME UNTIL CALMOSEPTINE CAN BE ORDERED. TURNED TO RIGHT SIDE WITH PILLOW UNDER BACK AND UNDER BILATERAL HEELS. WILL TURN EVERY TWO HOURS.
[2019-01-31 08:11] LABS: ANION GAP 11.6 mmol/L (8-16); CALCIUM 9.6 mg/dL (8.5-10.1); CARBON DIOXIDE 31.4 mmol/L (21.0-32.0); CREATININE - SERUM 2.8 mg/dL (0.6-1.3)
[2019-01-31 08:12] LABS: BASOPHILS 0.1 % (0-2); EOSINOPHILS 0.6 % (0-7); HEMOGLOBIN 9.5 g/dL (12-16); IMMATURE GRANULOCYTES 0.8 % (0-5); LYMPHOCYTES 4.6 % (15-50); MCH 31.4 pg (26.0-34.0); MCHC 31.7 g/dL (31.0-37.0); MEAN PLATELET VOLUME 12.6 fL (7.4-10.4); MONOCYTES 6.5 % (2-11); NEUTROPHILS 87.4 % (40-80); PLATELET COUNT 103 10x3/uL (130-400); RBC 3.03 10x6/uL (4.00-5.40); RDW 18.4 % (11.5-14.5)
[2019-01-31 08:13] LABS: WBC 17.8 10x3/uL (4.8-10.8)
[2019-01-31 09:55] VITALS: BP 152/65
--- NOTE | 2019-01-31 10:16 | NUR ---
TURNED TO RIGHT SIDE WITH PILLOW FOR COMFORT. DENIES ANY NEEDS. FAMILY AT BEDSIDE.
--- NOTE | 2019-01-31 12:46 | NUR ---
O2 SAT IS 88%, PATIENT IS A MOUTH BREATHER. PLACED NASAL CANNULA IN MOUTH, SAT UP TO 92 % AND INCREASED TO 5L. CHAUNCEY BORJA APN HERE TO TALK TO DAUGHTER ABOUT POSSIBLE HOSPICE CONSULT.
[2019-01-31 12:49] VITALS: BP 142/70
--- NOTE | 2019-01-31 14:01 | NUR ---
Nutrition follow-up: Pt now NPO past speech therapy; not safe for PO Nepro infusing @ 40 ml/hr via NGT with 25 ml H2O flush Q hour Labs reviewed Wt: 148# Continuing with dialysis at this time RDN following.
--- NOTE | 2019-01-31 14:06 | NUR ---
RE-POSTITIONED TO LEFT SIDE.
--- NOTE | 2019-01-31 16:10 | NUR ---
PLACED ON BACK FOR TURNING SCHDEULE.
--- NOTE | 2019-01-31 17:09 | MORECARE ---
CASE MANAGEMENT DISCHARGE SUMMARY PATIENT: JESSY JOHNSON UNIT: [id number] ADM DATE: 01/19/19 AGE: 78 : 40 SEX: F ROOM/BED: D.9416 AUTHOR: TAMIKO,DOC PHYSICIAN: REFERRING PHYSICIAN: ARMANDO IBRAHIM MD DATE OF SERVICE: 01/31/19 Discharge Plan Patient Name: JESSY JOHNSON Facility: [facility]:[place] : 1940 Planned Disposition: Inpatient Rehab Anticipated Discharge Date: Discharge Date: Expected LOS: Initial Reviewer: [email or web address] Initial Review Date: 01/23/2019 Generated: 01/31/19 6:09 pm DCP- Discharge Planning Updated by [email or web address]: Lamar Ragland on 01/23/19 5:[address] Patient Name: JESSY JOHNSON Admission Status: ER Accout number: [id number] Admission Date: 01-19-2019 : 1940 Admission Diagnosis: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 Patient is currently on vent. Patient lives at home with 24 hr. family care. Daughters and family take turns staying with patient around the clock. The family would like for patient to go to inpatient rehab upon discharge to build strength. Patient has hemodialysis MWF @ [facility]. CM discussed availability / needs of home health and medical equipment. Family denies any discharge needs at this time. Patient will have family drive her home upon discharge. CM will continue to follow and assist as needed with discharge planning / needs. Geophysical Operator: Lamar Ragland DCPIA - Discharge Planning Initial Assessment Updated by [email or web address]: Lamar Ragland on 01/23/19 6:34 pm * Is the patient Alert and Oriented? Yes * How many steps to enter\exit or inside your home? ramp * PCP [place] * Pharmacy [facility] * Preadmission Environment Home with Family * ADLs Partial Dependent * Partial ADLs (Assistance needed) Ambulation Bathing Dressing Eating Medication Management Toileting Transfers * Other Equipment WHEELCHAIR, WALKER,WALKER WITH WHEELS * List name and contact numbers for known caregivers / representatives who currently or will assist patient after discharge: NANCY WILSON - DAUGHTER- [phone] * Verbal permission to speak to the caregivers and representatives has been obtained from the patient. N/A * Community resources currently utilized None * Please name any agencies selected above. HD @ [facility] * Additional services required to return to the preadmission environment? No * Can the patient safely return to the preadmission environment? Yes * Has this patient been hospitalized within the prior 30 days at any hospital? No Last DP export: 01/23/19 5:52 pm Patient Name: JESSY JOHNSON Page 68698 at 1709 All edits/amendments must be made on the electronic document DICTATION DATE: 01/31/191708 DOCUMENTATION NURSE: JUSTYNA 01/31/191708 RPT#: [id number] DC DATE: STATUS: ADM IN [facility] [address] [place] [address] END OF REPORT
--- NOTE | 2019-01-31 17:17 | MORECARE ---
CASE MANAGEMENT DISCHARGE SUMMARY PATIENT: JESSY JOHNSON UNIT: [id number] ADM DATE: 01/19/19 AGE: 78 : 40 SEX: F ROOM/BED: D.2746 AUTHOR: MAKAYLA MORRISON PHYSICIAN: REFERRING PHYSICIAN: ARMANDO IBRAHIM MD DATE OF SERVICE: 01/31/19 Discharge Plan Patient Name: JESSY JOHNSON Facility: [facility]:[place] : 1940 Planned Disposition: Inpatient Rehab Anticipated Discharge Date: Discharge Date: Expected LOS: Initial Reviewer: [email or web address] Initial Review Date: 01/23/2019 Generated: 01/31/19 6:17 pm Comments DCP- Discharge Planning Updated by [email or web address]: Gladis Kinney on 01/31/19 4:[address] RENAL PSYCHOLOGY TECHNICIAN DISCUSSED PT'S CONDITION AND HOSPICE CARE WITH THE DAUGHTER. SHE WISHES TO HAVE DISCUSS WITH ALL THE FAMILY PLAN FOR A FAMILY MEETING TOMORROW TO DISCUSS GOALS OF CARE AND HOSPICE. NO HOSPICE CONSULT ORDER AT THIS TIME. 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 Patient is currently on vent. Patient lives at home with 24 hr. family care. Daughters and family take turns staying with patient around the clock. The family would like for patient to go to inpatient rehab upon discharge to build strength. Patient has hemodialysis MWF @ [facility]. CM discussed availability / needs of home health and medical equipment. Family denies any discharge needs at this time. Patient will have family drive her home upon discharge. CM will continue to follow and assist as needed with discharge planning / needs. Real Estate Development Manager: Lamar Ragland DCPIA - Discharge Planning Initial Assessment Updated by [id number]: Lamarander Ragland on 01/23/19 6:34 pm * Is the patient Alert and Oriented? Yes * How many steps to enter\exit or inside your home? ramp * PCP [place] * Pharmacy [facility] * Preadmission Environment Home with Family * ADLs Partial Dependent * Partial ADLs (Assistance needed) Ambulation Bathing Dressing Eating Medication Management Toileting Transfers * Other Equipment WHEELCHAIR, WALKER,WALKER WITH WHEELS * List name and contact numbers for known caregivers / representatives who currently or will assist patient after discharge: NANCY WILSON - DAUGHTER- [phone] * Verbal permission to speak to the caregivers and representatives has been obtained from the patient. N/A * Community resources currently utilized None * Please name any agencies selected above. HD @ [facility] * Additional services required to return to the preadmission environment? No * Can the patient safely return to the preadmission environment? Yes * Has this patient been hospitalized within the prior 30 days at any hospital? No Last DP export: 01/31/19 4:09 p Patient Name: JESSY JOHNSON Page 26417 at 1717 All edits/amendments must be made on the electronic document DICTATION DATE: 01/31/191715 TRUCKER HAND: JUSTYNA 01/31/191715 RPT#: [id number] DC DATE: STATUS: ADM IN [facility] [address] [place] [address] END OF REPORT
--- NOTE | 2019-01-31 17:37 | NUR ---
PATIENT DOES NOT MAKE URINE SO NO URINE CAN BE OBTAINED.
[2019-01-31 17:57] VITALS: BP 165/66
--- NOTE | 2019-01-31 19:30 | NUR ---
EVENING ROUNDS COMPLETED. REPORT RECEIVED. PT SITTING UP IN BED WITH EYES OPEN, RR EVEN AND UNLABORED. NO S/S OF DISTRESS NOTED. OXYGEN AT 2 LITERS BY NASAL CANNULA, PLACED ON MOUTH, PT APPEARS TO BREATHE THROUGH MOUTH. SON AT BEDSIDE. ORDERED TUBE FEEDING INFUSING THROUGH RIGHT NARE. BED IN LOW POSITION. BED ALARM TURNED TO ON POSITION. INTRODUCED SELF TO PT. PT DOES NOT MAKE VERBAL RESPONSE. PT SON DOES NOT STATES ANY CONCERNS AT THIS TIME, DENIES FURTHER NEEDS. CALL LIGHT IN REACH. WILL CTM.
[2019-01-31 20:00] VITALS: BP 125/91
[2019-02-01] VITALS: BP 109/84
[2019-02-01 04:00] VITALS: BP 105/86
--- NOTE | 2019-02-01 04:39 | NUR ---
I have reviewed this patient and I concur with the Shift Assessment completed by the Licensed Practical Nurse today this shift.
[2019-02-01 05:50] LABS: HEMATOCRIT 30.6 % (36.0-48.0); HEMOGLOBIN 9.7 g/dL (12-16); MCH 31.9 pg (26.0-34.0); MCHC 31.7 g/dL (31.0-37.0); MCV 100.7 fL (80.0-100.0); MEAN PLATELET VOLUME 12.6 fL (7.4-10.4); PLATELET COUNT 112 10x3/uL (130-400); RBC 3.04 10x6/uL (4.00-5.40); RDW 18.9 % (11.5-14.5); WBC 23.2 10x3/uL (4.8-10.8)
[2019-02-01 05:51] LABS: EOSINOPHILS 1 % (0-7); LYMPHOCYTES 6 % (15-50); MONOCYTES 4 % (2-11); NEUTROPHILS 86 % (40-80); PLATELET ESTIMATE DECREASED
[2019-02-01 06:01] LABS: ANION GAP 13.3 mmol/L (8-16); CALCIUM 9.8 mg/dL (8.5-10.1); CARBON DIOXIDE 29.1 mmol/L (21.0-32.0); CREATININE - SERUM 3.5 mg/dL (0.6-1.3)
[2019-02-01 06:03] LABS: POTASSIUM - SERUM 4.4 mmol/L (3.5-5.1)
--- NOTE | 2019-02-01 07:35 | NUR ---
MEDICATED FOR PAIN. PATIENT GRIMACING AND RESP 28. MALE VISITOR AT BEDSIDE. CALL LIGHT WITHIN REACH.
--- NOTE | 2019-02-01 08:30 | NUR ---
FSBS 255. 4 UNITSL HUMALOG ADMINISTERED PER SLIDING SCALE. CONTINUOUS TUBE FEEDING INFUSING.
--- NOTE | 2019-02-01 08:45 | NUR ---
INCONTINENT CARE PROVIDED. TURNED AND REPOSITIONED. MEPILEX APPLIED TO BUTTOCKS.
[2019-02-01 10:08] VITALS: BP 120/55
--- NOTE | 2019-02-01 12:31 | NUR ---
FSBS 235. 2 UNITS HUMALOG ADMINISTERED PER SLIDING SCALE. PATIENT WITH INCONTINENT EPISODE AT THIS TIME. PATIENT FAMILY AT BEDSIDE. FORMULA FEEDING INFUSING ORDERED.
--- NOTE | 2019-02-01 13:15 | NUR ---
INCONTINENT CARE PROVIDED. TURNED AND REPOSITIONED. NO DISTRESS.
--- NOTE | 2019-02-01 15:19 | NUR ---
SPOKE WITH PATIENTS DAUGHTERS AND THEY ARE REQUESTING [facility] IN [facility] TO PROVIDE INPATIENT HOSPICE CARE TO THE PATIENT. THEY STATED WE HAVE BEEN GREAT, BUT THEY HAD THEIR DAD IN [facility] AND THEY REALLY LIKED IT. SPOKE WITH ANABELA, EQUITY HOLDER AND SHE IS CALLING [facility] AT THIS TIME. AWAITING UPDATE.
--- NOTE | 2019-02-01 15:41 | MORECARE ---
CASE MANAGEMENT DISCHARGE SUMMARY PATIENT: JESSY JOHNSON UNIT: [id number] ADM DATE: 01/19/19 AGE: 78 : 40 SEX: F ROOM/BED: D.5475 AUTHOR: MAKAYLA MORRISON PHYSICIAN: REFERRING PHYSICIAN: ARMANDO IBRAHIM MD DATE OF SERVICE: 02/01/19 Discharge Plan Patient Name: JESSY JOHNSON Facility: [facility]:[place] : 1940 Planned Disposition: Inpatient Rehab Anticipated Discharge Date: Discharge Date: Expected LOS: Initial Reviewer: [email or web address] Initial Review Date: 01/23/2019 Generated: 02/01/19 4:41 pm Comments DCP- Discharge Planning Updated by [email or web address]: Betsy Newton on 02/01/19 2:[address] Patient Name: JESSY JOHNSON Admission Status: ER Accout number: [id number] Admission Date: 01-19-2019 : 1940 Admission Diagnosis:TYPE 2 DIABETES W DIABETIC PERIPHERAL ANGIOPATHY W TERESA Attending: ARMANDO IBRAHIM Current LOS: 13 Anticipated DC Date: Planned Disposition: Inpatient Rehab Primary Insurance: MEDICARE A & B Discharge Planning Comments: CM CONSULTED FOR INPATIENT HOSPICE [facility]. CM CALLED REFERRAL INTO [facility]. AWAITING CALL FROM ASSESSMENT NURSE. FAMILY REQUESTED [facility]. PIA SIGNED Country Singer: Betsy Newton DCP- Discharge Planning Updated by [id number]: Gladis Kinney on 01/31/19 4:[address] RENAL PRINTER FLOOR COVERING ASSISTANT DISCUSSED PT'S CONDITION AND HOSPICE CARE WITH THE DAUGHTER. SHE WISHES TO HAVE DISCUSS WITH ALL THE FAMILY PLAN FOR A FAMILY MEETING TOMORROW TO DISCUSS GOALS OF CARE AND HOSPICE. NO HOSPICE CONSULT ORDER AT THIS TIME. DCP- Discharge Planning Updated by [id number]: Lamar Ragland on 01/23/19 5:[address] Patient Name: JESSY JOHNSON Admission Status: ER Accout number: [id number] Admission Date: 01-19-2019 : 1940 Admission Diagnosis:TYPE 2 DIABETES W DIABETIC PERIPHERAL ANGIOPATHY W TERESA Attending: ARMANDO IBRAHIM Current LOS: 4 Anticipated DC Date: Planned Disposition: Inpatient Rehab Primary Insurance: MEDICARE A & B Discharge Planning Comments: CM met with patient's daughter at bedside after explaining CM role and obtaining verbal consent. Patient is currently on vent. Patient lives at home with 24 hr. family care. Daughters and family take turns staying with patient around the clock. The family would like for patient to go to inpatient rehab upon discharge to build strength. Patient has hemodialysis MWF @ [facility]. CM discussed availability / needs of home health and medical equipment. Family denies any discharge needs at this time. Patient will have family drive her home upon discharge. CM will continue to follow and assist as needed with discharge planning / needs. Country Singer: Lamar Ragland DCPIA - Discharge Planning Initial Assessment Updated by [id number]: Lamar Ragland on 01/23/19 6:34 pm * Is the patient Alert and Oriented? Yes * How many steps to enter\exit or inside your home? ramp * PCP [place] * Pharmacy [facility] * Preadmission Environment Home with Family * ADLs Partial Dependent * Partial ADLs (Assistance needed) Ambulation Bathing Dressing Eating Medication Management Toileting Transfers * Other Equipment WHEELCHAIR, WALKER,WALKER WITH WHEELS * List name and contact numbers for known caregivers / representatives who currently or will assist patient after discharge: NANCY WILSON - DAUGHTER- [phone] * Verbal permission to speak to the caregivers and representatives has been obtained from the patient. N/A * Community resources currently utilized None * Please name any agencies selected above. HD @ [facility] MWF * Additional services required to return to the preadmission environment? No * Can the patient safely return to the preadmission environment? Yes * Has this patient been hospitalized within the prior 30 days at any hospital? No Last DP export: 01/31/19 4:17 p Patient Name: JESSY JOHNSON Page [id number] at 1541 All edits/amendments must be made on the electronic document DICTATION DATE: 02/01/191540 SHIPPING AND RECEIVING SPECIALIST: JUSTYNA 02/01/191540 RPT#: [id number] DC DATE: STATUS: ADM IN [facility] [address] [place] [address] END OF REPORT
--- NOTE | 2019-02-01 16:26 | MORECARE ---
CASE MANAGEMENT DISCHARGE SUMMARY PATIENT: JESSY JOHNSON UNIT: [id number] ADM DATE: 01/19/19 AGE: 78 : 40 SEX: F ROOM/BED: D.4336 AUTHOR: MAKAYLA MORRISON PHYSICIAN: REFERRING PHYSICIAN: ARMANDO IBRAHIM MD DATE OF SERVICE: 02/01/19 Discharge Plan Patient Name: JESSY JOHNSON Facility: [facility]:[place] : 1940 Planned Disposition: Inpatient Rehab Anticipated Discharge Date: Discharge Date: Expected LOS: Initial Reviewer: [email or web address] Initial Review Date: 01/23/2019 Generated: 02/01/19 5:26 pm Comments DCP- Discharge Planning Updated by [id number]: Betsy Newton on 02/01/19 3:[address] Patient Name: JESSY JOHNSON Admission Status: ER Accout number: [id number] Admission Date: 01-19-2019 : 1940 Admission Diagnosis: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 CM CALLED REFERRAL INTO [facility]. AWAITING CALL FROM ASSESSMENT NURSE. FAMILY REQUESTED [facility]. PIA SIGNED [facility] CALLED BACK SPOKE TO ME AND FAMILY. THEY CURRENTLY HAVE NO BEDS OPEN. FAMILY WILL DISCUSS WHAT THEY WOULD LIKE TO DO AT THIS POINT AND LET US KNOW. CM WILL FOLLOW UP WITH FAMILY TOMORROW Print Project Manager: Betsy Newton DCP- Discharge Planning Updated by [email or web address]: Gladis Kinney on 01/31/19 4:[address] RENAL SENIOR COMPLIANCE ANALYST DISCUSSED PT'S CONDITION AND HOSPICE CARE WITH THE DAUGHTER. SHE WISHES TO HAVE DISCUSS WITH ALL THE FAMILY PLAN FOR A FAMILY MEETING TOMORROW TO DISCUSS GOALS OF CARE AND HOSPICE. NO HOSPICE CONSULT ORDER AT THIS TIME. 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 Patient is currently on vent. Patient lives at home with 24 hr. family care. Daughters and family take turns staying with patient around the clock. The family would like for patient to go to inpatient rehab upon discharge to build strength. Patient has hemodialysis MWF @ [facility]. CM discussed availability / needs of home health and medical equipment. Family denies any discharge needs at this time. Patient will have family drive her home upon discharge. CM will continue to follow and assist as needed with discharge planning / needs. Print Project Manager: Lamar Ragland DCPIA - Discharge Planning Initial Assessment Updated by [id number]: Lamar Ragland on 01/23/19 6:34 pm * Is the patient Alert and Oriented? Yes * How many steps to enter\exit or inside your home? ramp * PCP [place] * Pharmacy [facility] * Preadmission Environment Home with Family * ADLs Partial Dependent * Partial ADLs (Assistance needed) Ambulation Bathing Dressing Eating Medication Management Toileting Transfers * Other Equipment WHEELCHAIR, WALKER,WALKER WITH WHEELS * List name and contact numbers for known caregivers / representatives who currently or will assist patient after discharge: NANCY WILSON - DAUGHTER- [phone] * Verbal permission to speak to the caregivers and representatives has been obtained from the patient. N/A * Community resources currently utilized None * Please name any agencies selected above. HD @ [facility] MWF * Additional services required to return to the preadmission environment? No * Can the patient safely return to the preadmission environment? Yes * Has this patient been hospitalized within the prior 30 days at any hospital? No Last DP export: 02/01/19 2:41 p Patient Name: JESSY JOHNSON Page 42378 at 0967 All edits/amendments must be made on the electronic document DICTATION DATE: 02/01/19 FIBER DESIGN ENGINEER: JUSTYNA 02/01/191624 RPT#: [id number] DC DATE: STATUS: ADM IN [facility] [address] [place] [address] END OF REPORT
--- NOTE | 2019-02-01 17:51 | NUR ---
FSBS 155. 2 UNITS HUMALOG ADMINISTERED PER SLIDING SCALE. TURNED AND REPOSITIONED. INCONTINENT CARE PROVIDED. DAUGHTER AT BEDSIDE. CALL LIGHT WITHIN REACH. PATIENT NOTED TO HAVE SOME VINCENT STROKE BREATHING. PATIENT DAUGHTER HAS DECIDED THAT [facility] COULD BE CONSULTED DUE TO RAPID DETERIORATION OF PATIENT. PAGING CASE MANAGMENT AT THIS TIME.
--- NOTE | 2019-02-01 17:59 | NUR ---
SPOKE WITH MANISH, COAL HAULER, TO INFORM OF THE NEW ORDER BEING PLACED FOR [facility] NOW THAT PATIENT HAS HAD A SIGNIFICANT DECLINE AND [facility] WAS NOT ABLE TO ADMITT. MANISH WAITING FOR THE ORDER TO COME THROUGH AT THIS TIME.
--- NOTE | 2019-02-01 18:11 | MORECARE ---
CASE MANAGEMENT DISCHARGE SUMMARY PATIENT: JESSY JOHNSON UNIT: [id number] ADM DATE: 01/19/19 AGE: 78 : 40 SEX: F ROOM/BED: D.0715 AUTHOR: TAMIKODOC PHYSICIAN: REFERRING PHYSICIAN: ARMANDO IBRAHIM MD DATE OF SERVICE: 02/01/19 Discharge Plan Patient Name: JESSY JOHNSON Facility: [facility]:[place] : 1940 Planned Disposition: Inpatient Rehab Anticipated Discharge Date: Discharge Date: Expected LOS: Initial Reviewer: [email or web address] Initial Review Date: 01/23/2019 Generated: 02/01/19 7:11 pm Comments DCP- Discharge Planning Updated by [email or web address]: Homa Reyes on 02/01/19 5:[address] [facility]. CM contacted office #[phone], provided information required. Await CB from O/C nurse. 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 CM CALLED REFERRAL INTO [facility]. AWAITING CALL FROM ASSESSMENT NURSE. FAMILY REQUESTED [facility]. PIA SIGNED [facility] CALLED BACK SPOKE TO ME AND FAMILY. THEY CURRENTLY HAVE NO BEDS OPEN. FAMILY WILL DISCUSS WHAT THEY WOULD LIKE TO DO AT THIS POINT AND LET US KNOW. CM WILL FOLLOW UP WITH FAMILY TOMORROW Procurement Services Manager: Betsy Newton DCP- Discharge Planning Updated by [email or web address]: Gladis Kinney on 01/31/19 4:[address] RENAL W[employer] PL[employer] REPAIRER DISCUSSED PT'S CONDITION AND HOSPICE CARE WITH THE DAUGHTER. SHE WISHES TO HAVE DISCUSS WITH ALL THE FAMILY PLAN FOR A FAMILY MEETING TOMORROW TO DISCUSS GOALS OF CARE AND HOSPICE. NO HOSPICE CONSULT ORDER AT THIS TIME. 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 Patient is currently on vent. Patient lives at home with 24 hr. family care. Daughters and family take turns staying with patient around the clock. The family would like for patient to go to inpatient rehab upon discharge to build strength. Patient has hemodialysis MWF @ [facility]. CM discussed availability / needs of home health and medical equipment. Family denies any discharge needs at this time. Patient will have family drive her home upon discharge. CM will continue to follow and assist as needed with discharge planning / needs. Procurement Services Manager: Lamar Ragland DCPIA - Discharge Planning Initial Assessment Updated by [id number]: Lamar Ragland on 01/23/19 6:34 pm * Is the patient Alert and Oriented? Yes * How many steps to enter\exit or inside your home? ramp * PCP [facility] * Pharmacy [facility] * Preadmission Environment Home with Family * ADLs Partial Dependent * Partial ADLs (Assistance needed) Ambulation Bathing Dressing Eating Medication Management Toileting Transfers * Other Equipment WHEELCHAIR, WALKER,WALKER WITH WHEELS * List name and contact numbers for known caregivers / representatives who currently or will assist patient after discharge: NANCY WILSON - DAUGHTER- [phone] * Verbal permission to speak to the caregivers and representatives has been obtained from the patient. N/A * Community resources currently utilized None * Please name any agencies selected above. HD @ [facility] MWF * Additional services required to return to the preadmission environment? No * Can the patient safely return to the preadmission environment? Yes * Has this patient been hospitalized within the prior 30 days at any hospital? No Last DP export: 02/01/19 3:26 p Patient Name: JESSY JOHNSON Page [id number] at 1811 All edits/amendments must be made on the electronic document DICTATION DATE: 02/01/191809 SR. STRATEGIC SOURCING MANAGER: JUSTYNA 02/01/191809 RPT#: [id number] DC DATE: STATUS: ADM IN [facility] [address] [place] [address] END OF REPORT
[2019-02-01 18:55] VITALS: BP 128/57
--- NOTE | 2019-02-01 20:25 | NUR ---
REPORT CALLED TO MITCH REYNOSO AT [facility] IN PATIENT HOSPICE [phone].
--- NOTE | 2019-02-01 20:37 | NUR ---
RIGHT NARE NG TUBE REMOVED, FRESH LINEN AND GOWN PROVIDED TO PT. [facility] NOTIFED AND EN ROUTE FOR DIRECTOR OF SCOUT WORK.
--- NOTE | 2019-02-01 22:03 | NUR ---
[facility] HAS ARRIVED AND TAKEN PT BY [facility]I.
--- NOTE | 2019-02-03 08:43 | MORECARE ---
CASE MANAGEMENT DISCHARGE SUMMARY PATIENT: JESSY JOHNSON UNIT: [id number] ADM DATE: 01/19/19 AGE: 78 : 40 SEX: F ROOM/BED: D.7840 AUTHOR: TAMIKO,DOC PHYSICIAN: REFERRING PHYSICIAN: ARMANDO IBRAHIM MD DATE OF SERVICE: 02/03/19 Discharge Plan Patient Name: JESSY JOHNSON Facility: [facility]:[place] : 1940 Planned Disposition: Hospice Medical Facility Anticipated Discharge Date: 02/01/19 Discharge Date: 02/01/2019 Expected LOS: 13 Initial Reviewer: [email or web address] Initial Review Date: 01/23/2019 Generated: 02/03/19 9:42 am Comments DCP- Discharge Planning Updated by [email or web address]: Homa Reyes on 02/01/19 5:[address] [facility] received. CM contacted office #[phone], provided information required. Await CB from O/C nurse. 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. CM CALLED REFERRAL INTO [facility]. AWAITING CALL FROM ASSESSMENT NURSE. FAMILY REQUESTED [facility]. PIA SIGNED [facility] CALLED BACK SPOKE TO ME AND FAMILY. THEY CURRENTLY HAVE NO BEDS OPEN. FAMILY WILL DISCUSS WHAT THEY WOULD LIKE TO DO AT THIS POINT AND LET US KNOW. CM WILL FOLLOW UP WITH FAMILY TOMORROW Brazing Machine Feeder: Betsy Newton DCP- Discharge Planning Updated by [email or web address]: Gladis Kinney on 01/31/19 4:[address] RENAL [employer] ADVISOR DISCUSSED PT'S CONDITION AND HOSPICE CARE WITH THE DAUGHTER. SHE WISHES TO HAVE DISCUSS WITH ALL THE FAMILY PLAN FOR A FAMILY MEETING TOMORROW TO DISCUSS GOALS OF CARE AND HOSPICE. NO HOSPICE CONSULT ORDER AT THIS TIME. 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 Patient is currently on vent. Patient lives at home with 24 hr. family care. Daughters and family take turns staying with patient around the clock. The family would like for patient to go to inpatient rehab upon discharge to build strength. Patient has hemodialysis MWF @ [facility]. CM discussed availability / needs of home health and medical equipment. Family denies any discharge needs at this time. Patient will have family drive her home upon discharge. CM will continue to follow and assist as needed with discharge planning / needs. Brazing Machine Feeder: Lamar Ragland DCPIA - Discharge Planning Initial Assessment Updated by [email or web address]: Lamar Ragland on 01/23/19 6:34 pm * Is the patient Alert and Oriented? Yes * How many steps to enter\exit or inside your home? ramp * PCP [place] * Pharmacy [facility] * Preadmission Environment Home with Family * ADLs Partial Dependent * Partial ADLs (Assistance needed) Ambulation Bathing Dressing Eating Medication Management Toileting Transfers * Other Equipment WHEELCHAIR, WALKER,WALKER WITH WHEELS * List name and contact numbers for known caregivers / representatives who currently or will assist patient after discharge: NANCY WILSON - DAUGHTER- [phone] * Verbal permission to speak to the caregivers and representatives has been obtained from the patient. N/A * Community resources currently utilized None * Please name any agencies selected above. HD @ [facility] MWF * Additional services required to return to the preadmission environment? No * Can the patient safely return to the preadmission environment? Yes * Has this patient been hospitalized within the prior 30 days at any hospital? No Last DP export: 02/01/19 5:11 p Patient Name: JESSY JOHNSON Page [id number] at 0843 All edits/amendments must be made on the electronic document DICTATION DATE: 02/03/19841 FIRE EXTINGUISHER TECHNICIAN: JUSTYNA 02/03/19841 RPT#: [id number] DC DATE:02/01/19 STATUS: DIS IN [facility] [address] [place] [address] END OF REPORT
== END 2019-02-01 22:03 | disposition hospice, inpatient (51) | DRG 270 ==
LOC: D.ER 22:02 → D.ICU 01-19 01:11 → D.M2 01-19 01:11 → D.CVICU 01-19 01:11 → D.ICU 01-21 14:42 → D.M2 01-29 13:11
PROVIDERS: Family Medicine; General Practice; Internal Medicine; Internal Medicine Nephrology; Internal Medicine Pulmonary Disease; ADMIT Internal Medicine Nephrology; ATTEND Internal Medicine Nephrology
PROC: 06HM33Z Insertion of Infusion Device into Right Femoral Vein, Percutaneous Approach (ICD-10-PCS; 2019-01-19)
PROC: B54BZZA Ultrasonography of Right Lower Extremity Veins, Guidance (ICD-10-PCS; 2019-01-19)
PROC: 047D3DZ Dilation of Left Common Iliac Artery with Intraluminal Device, Percutaneous Approach (ICD-10-PCS; 2019-01-20)
PROC: 047C3DZ Dilation of Right Common Iliac Artery with Intraluminal Device, Percutaneous Approach (ICD-10-PCS; 2019-01-20)
PROC: 047H3DZ Dilation of Right External Iliac Artery with Intraluminal Device, Percutaneous Approach (ICD-10-PCS; 2019-01-20)
PROC: 047K3ZZ Dilation of Right Femoral Artery, Percutaneous Approach (ICD-10-PCS; 2019-01-20)
PROC: B41F1ZZ Fluoroscopy of Right Lower Extremity Arteries using Low Osmolar Contrast (ICD-10-PCS; 2019-01-20)
PROC: 3E06317 Introduction of Other Thrombolytic into Central Artery, Percutaneous Approach (ICD-10-PCS; 2019-01-20)
PROC: 0BH17EZ Insertion of Endotracheal Airway into Trachea, Via Natural or Artificial Opening (ICD-10-PCS; 2019-01-20)
PROC: 5A1945Z Respiratory Ventilation, 24-96 Consecutive Hours (ICD-10-PCS; 2019-01-20)
PROC: 04CK3ZZ Extirpation of Matter from Right Femoral Artery, Percutaneous Approach (ICD-10-PCS; principal; 2019-01-20 13:00)
DX: E11.52 Type 2 diabetes mellitus with diabetic peripheral angiopathy with gangrene (principal); N18.6 End stage renal disease; J96.01 Acute respiratory failure with hypoxia; G93.41 Metabolic encephalopathy; I50.33 Acute on chronic diastolic (congestive) heart failure; I70.261 Atherosclerosis of native arteries of extremities with gangrene, right leg; L03.115 Cellulitis of right lower limb; I13.2 Hypertensive heart and chronic kidney disease with heart failure and with stage 5 chronic kidney disease, or end stage renal disease; I50.30 Unspecified diastolic (congestive) heart failure; E87.2 Acidosis; J98.11 Atelectasis; E11.22 Type 2 diabetes mellitus with diabetic chronic kidney disease; Z86.73 Personal history of transient ischemic attack (TIA), and cerebral infarction without residual deficits; I08.3 Combined rheumatic disorders of mitral, aortic and tricuspid valves; D69.6 Thrombocytopenia, unspecified; I27.20 Pulmonary hypertension, unspecified; D64.9 Anemia, unspecified; I25.10 Atherosclerotic heart disease of native coronary artery without angina pectoris; Z66 Do not resuscitate; I82.441 Acute embolism and thrombosis of right tibial vein; L89.159 Pressure ulcer of sacral region, unspecified stage; E83.51 Hypocalcemia; E87.6 Hypokalemia